=== PATIENT | female | born 1970 | race Two or more races ===

== ENCOUNTER 2022-03-11 06:05 | Outpatient (REF) | payer OTHER, SELFPAY ==
[2022-03-11 08:06] LABS: Alanine Aminotransferase 15 U/L (0-31); Albumin Level 4.4 g/dL (3.5-5.0); Alkaline Phosphatase 108 U/L (39-117); Anion Gap 16 (12-20); Aspartate Amino Transferase 17 U/L (5-31); Bilirubin Total 0.2 mg/dL (0.0-1.0); Blood Urea Nitrogen 13 mg/dL (9-16); Calcium 9.2 mg/dL (8.4-10.2); Carbon Dioxide 25 mmol/L (22-29); Chloride 106 mmol/L (96-108); Cholesterol 224 mg/dL; Estimated Glomerular Filt Rate > 60; Glucose Fasting 97 mg/dL (60-99); HDL Cholesterol 90 mg/dL; LDL Cholesterol Calculated 111 mg/dl; Potassium 4.7 mmol/L (3.3-5.1); Sodium 142 mmol/L (135-145); Total Protein 7.7 g/dL (6.5-8.0); Triglycerides 116 mg/dL
== END 2022-03-11 06:06 | disposition home or self-care (01) ==
LOC: HO.LAB 06:05
PROVIDERS: PCP Internal Medicine; Visit Provider Internal Medicine
DX: Z00.00 Encounter for general adult medical examination without abnormal findings (principal)
CPT/HCPCS: 36415; 80053; 80061

== ENCOUNTER 2022-03-16 15:36 | Outpatient (REF) | payer OTHER, SELFPAY ==
--- NOTE | ~2022-03-16 | MM_ITS ---
EXAMINATION: MM SCREENING DIGITAL BREAST TOMOSYNTHESIS, BILATERAL CLINICAL INFORMATION: Screening. Asymptomatic. The lifetime risk of breast cancer based on the Tyrer-Cuzick Model is 20.3%. Additional annual screening with breast MRI may be of benefit in women with a score of 20% or greater. COMPARISON: Mammography: None. TECHNIQUE: Digital breast tomosynthesis is performed in both the craniocaudal and mediolateral oblique views along with computer-aided detection (CAD). Synthesized 2D images are generated from the tomosynthesis. FINDINGS: The breasts are heterogeneously dense, which may obscure small masses (ACR BI-RADS breast composition Category c). About the upper outer aspect of the right breast approximately 4 cm from the nipple, there is a partially circumscribed approximately 2.0 x 2.2 x 2.3 cm in size mass with adjacent partially circumscribed density posterior to it. There is also multiplicity and bilaterality of calcifications with no one grouping being more suspicious than any other. No significant masses identified within the left breast. There is a question of some architectural distortion in the left breast superiorly but which is seen to represent superimposition of fibroglandular structures with tomosynthesis views. MM/MM tomosynthesis screening BI IMPRESSION: Right breast findings for which further evaluation is recommended with ultrasound. ASSESSMENT: BI-RADS 0: Incomplete - Need Additional Imaging Evaluation. RECOMMENDATION: Right breast ultrasound. Radiology department staff will contact the patient for additional imaging. This patient's information was entered into a reminder system with a target due date for their next mammogram.
== END 2022-03-16 15:37 | disposition home or self-care (01) ==
LOC: HO.MAMMO 15:36
PROVIDERS: PCP Internal Medicine; Visit Provider Internal Medicine
DX: Z12.31 Encounter for screening mammogram for malignant neoplasm of breast (principal)
CPT/HCPCS: 77063; 77067

== ENCOUNTER 2022-03-22 10:23 | Outpatient (REF) | payer OTHER, SELFPAY ==
--- NOTE | ~2022-03-22 | US_ITS ---
EXAMINATION: US DIAGNOSTIC ULTRASOUND BREAST, RIGHT CLINICAL INFORMATION: Recall from screening for oval mass upper outer right breast 2.3 cm, likely fibrocystic changes. COMPARISON: Mammography 03/16/2022. TECHNIQUE: Ultrasound right breast is targeted to the outer breast using grayscale imaging and color Doppler without and with harmonics. FINDINGS: There are fibrocystic changes as suspected outer right breast, largest cyst measures 2.5 x 1.5 cm and is simple, anechoic and circumscribed with no color flow. There are other smaller simple cysts present. No solid mass or complicated cyst. No duct ectasia. No architectural abnormality. Results are discussed with the patient at time of visit, using an greenhouse instructor. US/US breast RT limited IMPRESSION: -Simple cysts outer right breast, largest 2.5 cm corresponding to recent mammography. ASSESSMENT: BI-RADS 2: Benign RECOMMENDATION: Routine annual mammography screening. This patient's information was entered into a reminder system with a target due date for their next mammogram.
== END 2022-03-22 10:24 | disposition home or self-care (01) ==
LOC: HO.MAMMO 10:23
PROVIDERS: PCP Internal Medicine; Visit Provider Internal Medicine
DX: N63.10 Unspecified lump in the right breast, unspecified quadrant (principal)
CPT/HCPCS: 76642

== ENCOUNTER 2022-05-19 09:59 | Outpatient (REF) | payer OTHER, SELFPAY ==
[2022-05-19 11:51] LABS: Hematocrit 43.1 % (37.0-47.0); Hemoglobin 14.1 g/dl (12.0-16.0); Mean Corpuscular HGB Conc 32.7 g/dl (31.0-35.0); Mean Corpuscular Hemoglobin 28.6 pg (27.0-33.0); Mean Corpuscular Volume 87.4 fL (80.0-98.0); Mean Platelet Volume 10.5 fL (9.4-12.3); Platelet Count 285 X10*3/uL (160-400); Red Blood Count 4.93 X10*6/uL (4.20-5.50); Red Cell Distribution Width 13.4 % (11.0-16.0); White Blood Count 7.3 X10*3/uL (4.8-10.8)
[2022-05-19 12:32] LABS: Thyroid Stimulating Hormone 0.63 uIU/mL (0.32-4.0)
[2022-05-19 12:36] LABS: HBc Num1 0.07 S/CO (0.00-0.79); HIV AB/AG Nonreactive (Nonreactive); HIV Num 1 0.06 S/CO (0.00-0.99); Hepatitis B Core Antibody Nonreactive (Nonreactive); ~HepC Num1 0.09 S/CO (0.00-0.79); ~Hepatitis C Antibody Nonreactive (Nonreactive)
[2022-05-19 12:42] LABS: Syphilis Screen Nonreactive (Nonreactive)
[2022-05-19 16:59] LABS: CT PCR NOT DETECTED (Not Detect.); NG PCR NOT DETECTED (Not Detect.)
== END 2022-05-19 10:00 | disposition home or self-care (01) ==
LOC: HO.LAB 09:59
PROVIDERS: PCP Internal Medicine; Visit Provider Advanced Practice Midwife
DX: Z01.419 Encounter for gynecological examination (general) (routine) without abnormal findings (principal); Z11.51 Encounter for screening for human papillomavirus (HPV); Z11.4 Encounter for screening for human immunodeficiency virus [HIV]; N92.1 Excessive and frequent menstruation with irregular cycle; Z20.2 Contact with and (suspected) exposure to infections with a predominantly sexual mode of transmission
CPT/HCPCS: 84443; 85027; 86704; 86780; 86803; 87389; 87491; 87591; 87624; 88142

== ENCOUNTER 2022-05-19 11:21 | Outpatient (REF) | payer OTHER, SELFPAY ==
[2022-05-20 09:28] LABS: HPV mRNA E6/E7 rflx Not Detected (Not Detected)
== END 2022-05-19 11:22 | disposition home or self-care (01) ==
LOC: HO.LNP 11:21
PROVIDERS: Visit Provider Advanced Practice Midwife
DX: Z13.89 Encounter for screening for other disorder (principal)
CPT/HCPCS: 87624; 88142

== ENCOUNTER 2022-06-16 14:07 | Outpatient (REF) | payer OTHER, SELFPAY ==
--- NOTE | ~2022-06-16 | US_ITS ---
EXAMINATION: US PELVIS CLINICAL INFORMATION: Uterine hypertrophy; the last menstrual period is not specified. COMPARISON: None TECHNIQUE: Ultrasound of the pelvis is performed using both transabdominal and transvaginal transducers along with Doppler. Transvaginal imaging is performed due to inadequate visualization transabdominally. FINDINGS: Uterus: The uterus is anteverted and anteflexed. The uterus measures 10.1 x 8.5 x 7.2 cm. The double wall endometrial thickness is 1.5 mm. A Nabothian cyst is seen within the cervix. The uterus is smooth in contour and has normal myometrial echogenicity. FIBROIDS: There are 2 fibroids seen. 1. Location: Leftward fundus. Size: 4.3 x 3.3 x 3.6 cm. Fibroid characteristics: 2. Location: Posterior lower uterine body. Size: 1.7 x 1.8 x 1.8 cm. Fibroid characteristics: Adnexa: Both ovaries are visualized. There is normal color flow to the adnexa. There is no ovarian torsion. There is no pelvic ascites or fluid collection. Right ovary measures 3.9 x 3.3 x 4.0 cm (volume 27.0 mL). The right ovary contains a 3.6 x 3.0 x 3.1 cm hemorrhagic cyst, with characteristic internal reticulated contents. Left ovary measures 2.9 x 2.4 x 2.0 cm (volume 7.3 mL). The left ovary contains a 1.8 cm in maximal diameter benign, simple cyst. US/US pelvic and transvaginal IMPRESSION: 1. Uterine fibroids are noted, as detailed. 2. A Nabothian cyst is seen within the cervix. 3. A 3.6 cm hemorrhagic right ovarian cyst is seen, and there is a 1.8 cm maximal diameter benign, simple left ovarian cyst.
== END 2022-06-16 14:08 | disposition home or self-care (01) ==
LOC: HO.US 14:07
PROVIDERS: PCP Internal Medicine; Visit Provider Advanced Practice Midwife
DX: N85.2 Hypertrophy of uterus (principal); N95.2 Postmenopausal atrophic vaginitis
CPT/HCPCS: 76830; 76856

== ENCOUNTER → 2022-06-21 13:56 | Outpatient (BNVA) | payer OTHER, SELFPAY | PROVIDERS: PCP Internal Medicine; Visit Provider Advanced Practice Midwife | DX: D25.9 Leiomyoma of uterus, unspecified (principal); N83.209 Unspecified ovarian cyst, unspecified side; N94.6 Dysmenorrhea, unspecified; Z71.2 Person consulting for explanation of examination or test findings | CPT/HCPCS: 99212 ==

== ENCOUNTER 2023-03-21 15:23 | Outpatient (REF) | payer OTHER, SELFPAY ==
--- NOTE | ~2023-03-21 | MM_ITS ---
EXAMINATION: MM SCREENING DIGITAL BREAST TOMOSYNTHESIS, BILATERAL CLINICAL INFORMATION: Screening. Asymptomatic. COMPARISON: Mammography: This study is compared with prior exams dating back to 2019. TECHNIQUE: Digital breast tomosynthesis is performed in both the craniocaudal and mediolateral oblique views along with computer-aided detection (CAD). Synthesized 2D images are generated from the tomosynthesis. FINDINGS: The breasts are heterogeneously dense, which may obscure small masses (ACR BI-RADS breast composition Category c). In the upper outer quadrant of the right breast, there are grouped calcifications for which additional mammographic imaging magnification is advised. These calcifications occur in the same region as well-circumscribed benign masses. These masses were shown to represent benign cysts on prior sonography from February 2022. There are no significant masses or areas of architectural distortion in either breast. There are no significant calcifications in the left breast. There is few benign calcifications in the left breast. MM/MM tomosynthesis screening BI IMPRESSION: Calcifications of the upper outer quadrant of the right breast warrant additional mammographic imaging magnification. There are bilateral benign mammographic findings in each breast. ASSESSMENT: BI-RADS BI-RADS 0 - Incomplete: Needs additional Imaging. RECOMMENDATION: Additional views of the right breast. Radiology department staff will contact the patient for additional imaging. Additional Imaging required This examination should not preclude the clinical evaluation of a suspicious palpable abnormality. This patient's information was entered into a reminder system with a target due date for their next mammogram.
== END 2023-03-21 15:24 | disposition home or self-care (01) ==
LOC: HO.MAMMO 15:23
PROVIDERS: PCP Internal Medicine; Visit Provider Internal Medicine
DX: Z12.31 Encounter for screening mammogram for malignant neoplasm of breast (principal)
CPT/HCPCS: 77063; 77067

== ENCOUNTER → 2023-03-21 15:45 | Outpatient (BNV) | payer OTHER, SELFPAY | PROVIDERS: PCP Internal Medicine; Visit Provider Radiology Diagnostic Radiology | DX: Z12.31 Encounter for screening mammogram for malignant neoplasm of breast (principal) | CPT/HCPCS: 77063; 77067 ==

== ENCOUNTER 2023-03-24 12:36 | Outpatient (AMB) | payer OTHER, SELFPAY ==
[2023-03-24 12:42] VITALS: BP 110/70; PULSE 82; O2SAT 98; BMI 24.4
--- NOTE | 2023-03-24 12:42 | MHC.PC.OV ---
Vital Signs 03/24/23 12:42 Height 5 ft 4 in Weight 142 lb BMI 24.4 BP 110/70 Blood Pressure Location Lt brachial Position Sitting Pulse 82 Pulse Source Pulse Oximeter Pulse Oximetry (%) 98 Oxygen Delivery Method Room Air Intake Visit Reasons: Annual Exam Intake Note: Patient here for a physical exam Physical Security Specialist Required: No Accompanied by: Self / Same As Patient Allergies No Known Allergies Allergy (Verified 03/24/23 12:51) Medication List - Last Reconciled 03/24/23 by Roxanne Cordero MD gabapentin 300 mg PO TID 30 days indomethacin 50 mg PO BID 30 days Tobacco use date assessed: 03/24/23 Dental Screening Dental Screen Date: 03/24/23 Did you have a dental visit in the last 12 months?: No Did you have a dental problem in the last 6 months where you did not have access to dental care?: No Was dental information given to patient?: Patient has dentist HPI HPI Comments History of Present Illness Details This is a 52-year-old female that comes for her physical exam. Last mammogram was this week and results are still pending. Last Pap smear was 2021 and was normal. She has no family history of colon cancer and no complains. Will order Cologuard to screen for colon cancer. No chest pain or shortness of breath. 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 1. Little interest or pleasure in doing things: not at all 2. Feeling down, depressed, or hopeless: not at all 3. Trouble falling or staying asleep, or sleeping too much: not at all 4. Feeling tired or having little energy: not at all 5. Poor appetite or overeating: not at all 6. Feeling bad about yourself - or that you are a failure or have let yourself or your family down: not at all 7. Trouble concentrating on things, such as reading the newspaper or watching television: not at all 8. Moving or speaking so slowly that other people could have noticed. Or the opposite - being so fidgety or restless that you have been moving around a lot more than usual: not at all 9. Thoughts that you would be better off or of hurting yourself in some way: not at all Total score: 0 Depression Screening Interpretation: Negative Depression Screening Done: Yes 44631 - PHQ-9 Billing: Yes Source: Developed by Drs. Arnulfo Arthur, Nathalia Cottrell, Pedrito Hart and colleagues, with an educational kyle from [employer]. Thrive Questionnaire Date Thrive assessed: 03/24/23 I am a: Patient What is your living situation today?: I have a steady place to live Within the past 12 months, did the food you bought not last and you didn't have the money to get more?: Never true Within the past 12 months, did you worry whether your food would run out before you got money to buy more?: Never true Do you have trouble paying for medicines?: No Do you have trouble getting transportation to medical appointments?: No Do you have trouble paying your heating and electricity bill?: No Do you have trouble taking care of your child, family member or friend?: No Do you have trouble with day-to-day activities such as bathing, preparing meals, shopping, managing finances, etc.?: No Are you currently unemployed and looking for a job?: No Are you interested in more education?: No Please select the resources that you would like help with: None Currently or been in a relationship where the following occur: no concerns reported AUDIT C Alcohol Use Questionnaire (AUDIT-C) 1. How often do you have a drink containing alcohol?: 2-4 times a month 2. How many drinks containing alcohol do you have on a typical day when you are drinking?: 1 or 2 3. How often do you have six or more drinks on one occasion?: Never Total Score: 2 Score Reviewed/Action Taken: No JOSE ALEJANDRO-7 AMB Questionnaire JOSE ALEJANDRO-7 Date JOSE ALEJANDRO - 7 assessed: 03/24/23 Feeling nervous, anxious, or on edge: 0 = Not at all Not being able to stop or control worryin = Not at all Worrying too much about different things: 0 = Not at all Trouble relaxin = Not at all Being so restless that it is hard to sit still: 0 = Not at all Becoming easily annoyed or irritable: 0 = Not at all Feeling afraid as if something awful might happen: 0 = Not at all Total JOSE ALEJANDRO-7 score (0-4 normal; 5-9 mild; 10-14 moderate; 15-21 severe): 0 Source: Developed by Drs. Arnulfo Arthur, Nathalia Cottrell, Pedrito Hart and colleagues, with an educational kyle from [employer]. JOSE ALEJANDRO-7 Assessment Billing JOSE ALEJANDRO-7 Assessment Tool: JOSE ALEJANDRO-7 Assessment 20625 Review of Systems Const All systems reviewed & are unremarkable except as noted in HPI and below Eyes Reports no additional complaints, Denies change in vision and Denies other visual disturbances Card Denies chest pain at rest, Denies chest pain with activity, Denies edema, Denies irregular heart rhythm, Denies claudication, Denies dyspnea, Denies dyspnea on exertion, Denies orthopnea, Denies paroxysmal nocturnal dyspnea and Denies slow heart rate Resp Denies cough, Denies dyspnea and Denies dyspnea on exertion GI Denies abdominal pain, Denies change in bowel habits, Denies excessive flatus, Denies nausea and Denies vomiting Denies urinary incontinence, Denies urinary hesitancy and Denies urinary urgency Musc Denies abnormal gait, Denies atrophy, Denies deformity and Denies limited range of motion Skin/Breast Denies bleeding lesions, Denies changing lesions and Denies rash Neuro Denies abnormal gait Physical exam (Primary Care) Vital Signs: Last Vital Signs Pulse 82 03/24/23 12:42 BP 110/70 03/24/23 12:42 Pulse Ox 98 03/24/23 12:42 Oxygen Delivery Method Room Air 03/24/23 12:42 BMI result Body Mass Index 24.4 Tobacco/Smoking Status: Tobacco use Status Tobacco use date assessed 03/24/23 03/24/23 12:48 Patient Tobacco Use Status Never used Tobacco 03/24/23 12:55 e-Cigarette/Vaping Use Never Used 03/24/23 12:55 PHQ-9: PHQ-9 Score PHQ-9: Total score 0 03/24/23 12:56 Depression Screening Interpretation: Negative Thrive Assessment: Date of Thrive Assessment Date Thrive assessed 03/24/23 03/24/23 12:48 Currently or been in a relationship where the following occur: no concerns reported Const Orientation/consciousness: patient oriented x3 HENMT Head: Yes normal to inspection, Yes normocephalic and Yes atraumatic Ears: external ears normal Eyes General: appearance normal, both eyes and all related structures Eyelids: Yes eyelids normal Conjunctivae: conjunctivae normal Neck Neck: Yes normal visual inspection and Yes supple Resp Effort & Inspection: normal respiratory effort Auscultation: clear to auscultation bilaterally Cardio Jugular venous distension: no JVD Rate: regular rate Rhythm: regular rhythm Heart sounds: S1 normal heart sound present and S2 normal heart sound present GI Inspection: Yes normal to inspection Palpation (GI): Soft to palpation and nontender Auscultation: normal bowel sounds Skin General skin exam: no rashes or lesions noted Neuro General: patient oriented x3 and no focal motor deficits Extrem General: Yes full ROM Psych Appearance: grossly normal Office Procedures Flu Questionnaire Does the patient have a severe egg allergy?: No Does the patient have severe life threatening allergies?: No Does the patient have a fever or illness today?: No Has the patient ever had Guillain-Makanda Syndrome?: No Has the patient ever had any past reaction to a flu shot?: No Immunizations flu vacc [id number] 6mos up(PF) 60 mcg(15 mcgx4)/0.5 mL IM syringe Performing Provider: Roxanne Cordero MD Performing Location: [facility] Administered by: JOSEPH Calvin on 03/24/23 13:05 Dose Route Admin Location Dispensed Lot Number Expiration Date NDC Buffing Wheel Raker 0.5 mL IM Right Deltoid 0.5 mL [id number] 11/20/23 92996-898-48 [employer] VIS Given Date VIS Provided VIS Publication Date 03/24/23 Single Vaccine 20 Eligibility Eligibility Date Funding Source Not VFC Eligible 03/24/23 Private Assessment and Plan Assessment & Plan (1) Physical exam: Code(s): Z00.00 - Encounter for general adult medical examination without abnormal findings Plan: Repeat in a year Orders: Orders Influenza [id number] Immunization Today Z23 - Encounter for immunization Lipid Panel Today Z00.00 - Encounter for general adult medical examination without abnormal findings Comprehensive [place]. Panel Fast Today Z00.00 - Encounter for general adult medical examination without abnormal findings Referrals Cologuard Test Z12.11 - Encounter for screening for malignant neoplasm of colon, Z12.12 - Encounter for screening for malignant neoplasm of rectum Coding Level of Care Code Est Pt Prev Care 40-64y(71271) Diagnoses Physical exam Z00.00 Additional Codes JOSE ALEJANDRO-7 Assessment Billing - JOSE ALEJANDRO-7 Assessment Tool: JOSE ALEJANDRO-7 Assessment 04406 ([id number]) Time Spent (min) 31
== END 2023-03-24 13:08 | disposition home or self-care (01) ==
PROVIDERS: Visit Provider Internal Medicine
DX: Z00.00 Encounter for general adult medical examination without abnormal findings (principal); Z23 Encounter for immunization
CPT/HCPCS: 90471; 90686; 99396

== ENCOUNTER 2023-05-26 09:51 | Outpatient (AMB) | payer OTHER, SELFPAY ==
--- NOTE | 2023-05-26 09:52 | MHC.OFFVIS ---
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 She is doing well with no concerns. Reports regular monthly menses x3 days. Denies hot flashes. Attempting to eat a healthy diet with calcium and vitamin D and stays active with exercise. Currently not sexually active. Denies any vaginal dryness or irritation. STI testing offered; she declines. Last pap smear; 2021. Last mammogram; incomplete, has follow up 05/27/23. Colonoscopy is UTD. Denies any family history of ovarian or colon cancer. FH mother w/breast cancer. 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 Current occupational exposures/hazards: No Sexual orientation: Straight/Heterosexual Gender identity: Female Cognitive needs: No Hearing needs: No Vision needs: No Female Reproductive History Menstrual Age of Menarche: 13 Total pregnancies: 0 Date of last pap smear: 05/19/22 (neg pap and hpv) Date of Mammogram: 03/21/23 (Birad 0) Review of Systems Const All systems reviewed & are unremarkable except as noted in HPI and below Reports as per HPI Eyes Reports no additional complaints ENT Reports no additional complaints Card Reports no additional complaints Resp Reports no additional complaints GI Reports as per HPI and Reports no additional complaints Reports as per HPI Musc Reports no additional complaints Skin/Breast Reports as per HPI Neuro Reports no additional complaints Psych Reports no additional complaints Endo Reports no additional complaints Julio C/Lymph Reports no additional complaints Aller/Immun Reports no additional complaints Physical Exam Vital Signs: Last Vital Signs BP 120/80 05/26/23 09:53 BMI result Body Mass Index 24.4 Const General: cooperative, healthy appearing, no acute distress, well developed and alert Orientation/consciousness: patient oriented x3 HEENT Head: Yes normal to inspection Eyes General: appearance normal, both eyes and all related structures Neck Neck: Yes normal visual inspection Thyroid: Thyroid normal Chest Chest palpation & inspection: normal inspection of the chest and other (no puckering, dimpling, peau de orange, retraction, discharge, masses) Breast/axilla inspection: normal inspection of the breasts Breast/axilla palpation: normal palpation of the breasts Resp Effort & Inspection: normal respiratory effort GI Inspection: Yes normal to inspection Palpation (GI): Soft to palpation Rectal Exam - Female: deferred General: Yes bladder normal to palpation External Female Exam: normal external appearance and normal appearance of the urethra Speculum Exam - Vagina: normal appearance of the vagina, normal palpation and normal vaginal discharge Speculum Exam - Cervix: normal appearance of the cervix and normal palpation Bimanual exam- vagina & uterus: normal bimanual exam, normal palpation, bladder normal to palpation, normal palpation, non-tender and enlarged Bimanual Exam- Adnexa, other: no masses Skin General skin exam: no rashes or lesions noted Rashes: no rashes Neuro General: patient oriented x3 Cognition (Neuro): normal cognition Extrem General: Yes normal to inspection Psych Attitude: cooperative Thought process: Normal thought process present Assessment & Plan Assessment & Plan (1) Encounter for well woman exam with routine gynecological exam: Code(s): Z01.419 - Encounter for gynecological examination (general) (routine) without abnormal findings (2) Uterine fibroid: Code(s): D25.9 - Leiomyoma of uterus, unspecified Qualifiers: Uterine leiomyoma location: unspecified location Qualified Code(s): D25.9 - Leiomyoma of uterus, unspecified (3) Enlarged uterus: Code(s): N85.2 - Hypertrophy of uterus Plan: Counseled re: Leiomyoma: common pelvic neoplasm. Differential diagnosis-may include leiomyosarcoma which is a rare uterine sarcoma 3-7/100,000, difficult to distinguish from fibroids on ultrasound from uterine sarcoma's. Unlikely any single test will have a highly positive predictive value. Hysterectomy is not recommended for sole purpose of excluding malignant neoplasm. Report any PMB/AUB. Pelvic pressure, bloating, or pain. Expectant management offered. Expectant management follow up yearly for stability. Referral to MD if indicated for level of care. Plan Discussed: Current recommendations for pap smears per ASCCP guidelines. Breast awareness, periodic self breast exams and yearly mammogram. Maintain a healthy lifestyle, well balanced diet including Calcium 1,200 mg and Vitamin D 600 IU daily, and routine exercise. Use of condoms for STI if indicated. Contact the office with any AUB bleeding. Monitor menstrual cycles, report any unscheduled bleeding, bleeding episodes <21 days apart or heavy/prolonged menstrual bleeding. Call the office for a follow up for any concerns. All of her questions and concerns were addressed to the best of my ability. 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 This note is constructed using voice recognition software. While every effort has been made to ensure accuracy, device sales consultant errors may have been included. Orders: Orders US pelvic and transvaginal Today D25.9 - Leiomyoma of uterus, unspecified Coding Level of Care Code Est Pt Prev Care 40-64y(69976) Diagnoses Encounter for well woman exam with routine gynecological exam Z01.419 Uterine leiomyoma, unspecified location D25.9 Uterine leiomyoma location: unspecified location Enlarged uterus N85.2
[2023-05-26 09:53] VITALS: BP 120/80; BMI 24.4
== END 2023-05-26 10:21 | disposition home or self-care (01) ==
LOC: HO.HWS 09:51
PROVIDERS: PCP Internal Medicine; Visit Provider Advanced Practice Midwife
DX: Z01.419 Encounter for gynecological examination (general) (routine) without abnormal findings (principal); D25.9 Leiomyoma of uterus, unspecified; N85.2 Hypertrophy of uterus
CPT/HCPCS: 99396

== ENCOUNTER → 2023-05-26 09:51 | Outpatient (BNVA) | payer OTHER, SELFPAY | PROVIDERS: PCP Internal Medicine; Visit Provider Advanced Practice Midwife | DX: Z01.419 Encounter for gynecological examination (general) (routine) without abnormal findings (principal); D25.9 Leiomyoma of uterus, unspecified; N85.2 Hypertrophy of uterus | CPT/HCPCS: 99396 ==

== ENCOUNTER 2023-05-27 10:39 | Emergency (ER) | payer OTHER, SELFPAY ==
[2023-05-27 10:49] VITALS: BP 143/85; PULSE 83; RESP 16; TEMP 36.3; O2SAT 99; BMI 22.9
--- NOTE | 2023-05-27 13:05 | ED.BACK ---
HPI - Back Pain/Injury General Chief Complaint: Back Pain/Injury Stated Complaint: R side hip pain Time Seen by Provider: 05/27/23 11:59 Source: patient Mode of arrival: ambulatory Limitations: no limitations History of Present Illness HPI Narrative: patient is a 52-year-old female who presents emergency department for evaluation of right lower back pain radiating into the buttock and down the upper leg. Onset was approximately 2 days ago. She reports a history of similar pain in the past about 4 5 years ago which did improve with muscle relaxers. Denies recent precipitating injury, fevers, chills, burning with micturition, urinary frequency/urgency/hesitancy, bladder or bowel dysfunction, numbness or tingling of the perineum or bilateral legs. Denies any recent surgical procedures, any known immune compromising conditions, personal history of cancer, or IV drug usage. MD elicited complaint: back pain Related Data Previous Rx's Medication Instructions Recorded gabapentin 300 mg capsule 300 mg PO TID 30 days #90 caps 04/03/23 indomethacin 50 mg capsule 50 mg PO BID 30 days #60 caps 04/03/23 cyclobenzaprine 10 mg tablet 10 mg PO BEDTIME PRN muscle spasm 05/27/23 #10 tabs Allergies Allergy/AdvReac Type Severity Reaction Status Date / Time No Known Allergies Allergy Verified 05/26/23 09:53 Review of Systems Review of Systems: Yes all other systems are reviewed and are negative PMFSH Past Medical History Attestation statement: The following information was validated with the patient. Source: old records reviewed Onset Date is defined in the Problem List Problems that require an onset date and time if occurred within 24 hrs of arrival to the ED Aortic Dissection and Rupture; Neurologic impairment; Cardiopulmonary Arrest; Endotracheal Intubation; Insertion or Replacement of Mechanical Circulatory Assist Device Medical History Uterine fibroid Endometriosis Surgical History History of fracture of clavicle History of ovarian cystectomy Family History Family History Father Hypertension Mother Breast cancer, Onset Age: 62 Social History Social History Household Members: None Housing: House Alcohol intake: current Alcohol intake frequency: a few times a month Alcohol type: beer, wine and hard liquor Patient Tobacco Use Status: Never used Tobacco e-Cigarette/Vaping Use: Never Used Second Hand Smoke Exposure: No Advance Directives: No service: No Current occupational status: employed 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 No acute distress.?Normal affect. Eyes: Pupils equal, round and reactive to light.? ENT: Pharynx normal.?? Neck: Normal inspection.? Neck supple.?? CVS: Heart sounds normal. Normal heart rate and rhythm.? Pulses normal; bilateral radial pulses 2+, bilateral posterior tibial/dorsalis pedis pulses 2+.? Respiratory: No respiratory distress.? Lung sounds clear to auscultation bilaterally?? Abdomen: Soft and non-tender. Normoactive bowel sounds. No pulsatile mass.?? Skin: Skin warm and dry.? Normal skin color.? Normal skin turgor.?? Extremities: No lower extremity edema.? No calf ttp? Back: + mild Right paraspinal muscular tenderness from lumbar region to coccyx. No CVA tenderness. No midline spinal tenderness, step-off's, or deformity. Full ROM intact in bilateral lower extremities. Straight leg test positive on right; Straight leg test negative on left. No rashes, lesions, areas of induration or fluctuance, or signs of infection noted., Neuro: Moves all extremities spontaneously. 5/5 strength in hip extension/flexion, abduction, adduction. Sensation to light touch intact bilaterally. Patellar and Achilles reflex 2+ bilaterally. No ataxia, gait normal and steady.. No focal neuro deficits. Medical Decision Making Medical Decision Making MDM Narrative: patient is a 51 old female presents emergency evaluation lower back as physical examination and history are most consistent with a lumbar radiculopathy, she is without any obvious precipitating injury so I have a low suspicion for disc herniation, although cannot completely exclude. On neurological exam there are no deficits. Not consistent with spinal fracture, spinal infection, epidural abscess, AAA, epidural abscess, or dissection. No high risk past medical history including incontinence, fever, immunosuppression, recent surgery or lumbar puncture, coagulopathy, significant trauma, recent unintentional weight loss, pulsatile mass, history of cancer, history of TB, history of IV drug use that would warrant MRI or CT. Not consistent with ectopic , pyelonephritis, urinary tract infection, renal calculi, pelvic infection, appendicitis, diverticulitis. On exam no concern for cauda equina syndrome. No imaging is currently indicated at this time. Plan for discharge home with prescription for Flexeril, and follow-up with primary care provider, and patient agreed with plan. Differential Diagnosis Differential Diagnoses: The differential diagnosis associated with the presentation includes ( see narrative above) Admission/Observation Consideration of admission/observation: Escalation of care including admission/observation considered ( see narrative above) External Record Review External record reviewed: Outpatient record Tests considered The following testing was considered but not selected: see narrative above Prescription Management I considered prescription management with: Pain Medication Discharge Plan Discharge Clinical Impression: Lumbar radiculopathy Patient Disposition: Home, Self-Care Instructions: Lumbar Radiculopathy (ED), Lower Back Exercises (ED) Prescriptions: New cyclobenzaprine 10 mg tablet 10 mg PO BEDTIME PRN (Reason: muscle spasm) Qty: 10 0RF No Action indomethacin 50 mg capsule 50 mg PO BID 30 Days Qty: 60 6RF Rx Instructions: administer with food or milk gabapentin 300 mg capsule 300 mg PO TID 30 Days Qty: 90 2RF Referrals: Roxanne Phelan MD [Primary Care Provider] - Stand Alone Forms: Work/School Release
== END 2023-05-27 14:00 | disposition home or self-care (01) ==
PROVIDERS: Emergency Provider Student in an Organized Health Care Education/Training Program; PCP Internal Medicine
DX: M54.16 Radiculopathy, lumbar region (principal)
CPT/HCPCS: 99282

== ENCOUNTER 2023-05-27 15:12 | Outpatient (REF) | payer SELFPAY | END 2023-05-27 15:13 | disposition home or self-care (01) | LOC: HO.MAMMO 15:12 | PROVIDERS: PCP Internal Medicine; Visit Provider Internal Medicine | DX: R92.1 Mammographic calcification found on diagnostic imaging of breast (principal) | CPT/HCPCS: 77065 ==

== ENCOUNTER → 2023-05-27 15:30 | Outpatient (BNV) | payer OTHER, SELFPAY | PROVIDERS: PCP Internal Medicine; Visit Provider Radiology Diagnostic Radiology | DX: D24.1 Benign neoplasm of right breast (principal); R92.1 Mammographic calcification found on diagnostic imaging of breast | CPT/HCPCS: 77065 ==

== ENCOUNTER 2023-06-14 14:25 | Outpatient (REF) | payer SELFPAY ==
--- NOTE | ~2023-06-14 | US_ITS ---
EXAMINATION: US PELVIS COMPLETE CLINICAL INFORMATION: Follow-up uterine fibroids; the last menstrual period was one week prior. COMPARISON: Pelvic ultrasound dated 06/16/2022. TECHNIQUE: Transabdominal and transvaginal imaging were performed. FINDINGS: The uterus is of normal size and echogenicity measuring 10.5 x 5.5 x 8.4 cm. A regular homogeneous endometrium is identified measuring 1.1 cm. Nabothian cysts are seen within the cervix. There is trace endocervical free fluid FIBROIDS: There are 2 fibroids seen. 1. Location: Left isthmus, myometrial. Size: 5.7 x 5.0 x 5.3 cm. Prior: 4.3 x 3.3 x 3.6 cm. Fibroid characteristics: Heterogeneously hyperechoic. 2. Location: Posterior rightward lower body, myometrial. Size: 2.1 x 2.1 x 2.1 cm. Prior: 1.7 x 1.8 x 1.8 cm. Fibroid characteristics: Heterogeneously hypoechoic. Both ovaries are of normal size and echogenicity. The right ovary measures 2.0 x 1.5 x 1.9 cm for a volume of 3.0 mL. The right ovary contains a 1.3 x 1.0 x 1.0 cm mildly complex cyst with fine septation. This is a benign finding, for which no imaging follow-up is recommended. The left ovary measures 3.8 x 1.6 x 2.6 cm for a volume of 8.3 mL. The left ovary contains adjacent 1.3 x 1.0 x 1.0 cm and 1.5 x 1.3 x 1.3 cm hemorrhagic cysts, with characteristic internal reticulated contents. There is a further benign, simple 1.5 cm dominant follicle, for which no imaging follow-up is recommended. There is no pelvic free fluid. No adnexal mass is seen. US/US pelvic and transvaginal IMPRESSION: 1. Uterine fibroids are redemonstrated. 2. There is trace, nonspecific endocervical free fluid. 3. Nabothian cysts are seen within the cervix. 4. There are benign appearing bilateral ovarian cysts, as detailed. These require no imaging follow-up.
== END 2023-06-14 14:26 | disposition home or self-care (01) ==
LOC: HO.US 14:25
PROVIDERS: PCP Internal Medicine; Visit Provider Advanced Practice Midwife
DX: D25.9 Leiomyoma of uterus, unspecified (principal)
CPT/HCPCS: 76830; 76856

== ENCOUNTER 2024-06-07 13:00 | Outpatient (REF) | payer BC, SELFPAY ==
--- NOTE | ~2024-06-07 | MM_ITS ---
EXAMINATION: MM DIAGNOSTIC DIGITAL BREAST TOMOSYNTHESIS, BILATERAL CLINICAL INFORMATION: Follow-up grouped calcifications in the upper outer right breast. COMPARISON: Mammography: Comparison is made with relevant prior exams. TECHNIQUE: Digital breast mammography with tomosynthesis is performed in both the craniocaudal and mediolateral oblique views along with computer-aided detection (CAD). FINDINGS: The breasts are heterogeneously dense, which may obscure small masses (ACR BI-RADS breast composition Category c). Grouped calcifications in the upper outer right breast are not significantly changed from prior magnification views dating back for one year some of which layer on MLO magnification views and could be milk of calcium. Circumscribed oval masses bilaterally which wax and wane, previously demonstrated to be simple cyst on prior ultrasound. No suspicious masses or other abnormal findings. Results are provided to the patient at time of visit by the technologist. MM/MM tomosynthesis diagnostic BI IMPRESSION: Right: Grouped calcifications in the upper outer quadrant not significantly changed on prior magnification views dating back for one year. Probably benign. Recommend follow-up in one year to demonstrate 2 years of stability. Left: Benign. ASSESSMENT: BI-RADS BI-RADS 3 - Probably benign finding(s) - 12 month follow-up suggested RECOMMENDATION: 12 month diagnostic follow up This patient's information was entered into a reminder system with a target due date for their next mammogram. Electronically signed by: Sintia Osborn DO 06/07/2024 01:34 PM VICKY
== END 2024-06-07 13:01 | disposition home or self-care (01) ==
LOC: HO.MAMMO 13:00
PROVIDERS: Visit Provider Internal Medicine
DX: R92.1 Mammographic calcification found on diagnostic imaging of breast (principal)
CPT/HCPCS: 77062; 77066

== ENCOUNTER → 2024-06-07 13:00 | Outpatient (BNV) | payer BC, SELFPAY | PROVIDERS: Visit Provider Internal Medicine | DX: R92.1 Mammographic calcification found on diagnostic imaging of breast (principal); N60.01 Solitary cyst of right breast; N60.02 Solitary cyst of left breast | CPT/HCPCS: 77062; 77066 ==

== ENCOUNTER 2024-08-06 11:03 | Outpatient (AMB) | payer BC, SELFPAY ==
--- NOTE | 2024-08-06 11:28 | MHC.OFFVIS ---
Vital Signs 08/06/24 11:33 Height 5 ft 6 in Weight 142 lb BMI 22.9 BP 124/72 Intake Visit Reasons: rt breast lump Oxygen Equipment Aide Required: Yes Oxygen Equipment Aide Language: Seafood Team Member Services: Oxygen Equipment Aide Present (in person) Oxygen Equipment Aide Name: JOSEPH Desir Information Interpreted: non-clinical & clinical Grease Maker Head: Grease Maker Head Present (JOSEPH Desir) Accompanied by: Self / Same As Patient Allergies No Known Allergies Allergy (Verified 05/26/23 09:53) Is last menstrual period known: No Post menopausal: Yes Patient : No HPI HPI rt breast lump: Details: Patient seen for a complaint of a breast lump in her right breast she felt it much more uncomfortable this past weekend. She is nulliparous and has not breastfed. She had an abnormal mammogram last year and had a follow-up diagnostic mammogram last year and a follow-up diagnostic mammogram this past May. Please see mammograms. Patient said she noticed it this weekend and it is a little uncomfortable her last period was 2 weeks ago. 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 No axillary mass. Left breast no mass palpable very dense firm breast tissue Right breast also dense firm but there is a palpable globular smooth mass behind right nipple approximately 3-4 cm round. Results Reviewed Results Reviewed: atient: Pretty Bob MR#: [id number] : 1970 Acct:[id number] Age/Sex: 53 / F ADM Date: 06/07/24 Loc: HO.MAMMO Attending Dr: Roxanne Cordero MD Ordering Physician: Roxanne Phelan MD Results: 3.12MProbably Benign Finding - 12 month F/U Suggested Date of Service: 06/07/24 Follow Up: 12 month diagnostic follow up Procedure(s): MM tomosynthesis diagnostic BI Accession Number(s): [id number] cc: Roxanne Phelan MD~ EXAMINATION: MM DIAGNOSTIC DIGITAL BREAST TOMOSYNTHESIS, BILATERAL CLINICAL INFORMATION: Follow-up grouped calcifications in the upper outer right breast. COMPARISON: Mammography: Comparison is made with relevant prior exams. TECHNIQUE: Digital breast mammography with tomosynthesis is performed in both the craniocaudal and mediolateral oblique views along with computer-aided detection (CAD). FINDINGS: The breasts are heterogeneously dense, which may obscure small masses (ACR BI-RADS breast composition Category c). Grouped calcifications in the upper outer right breast are not significantly changed from prior magnification views dating back for one year some of which layer on MLO magnification views and could be milk of calcium. Circumscribed oval masses bilaterally which wax and wane, previously demonstrated to be simple cyst on prior ultrasound. No suspicious masses or other abnormal findings. Results are provided to the patient at time of visit by the technologist. MM/MM tomosynthesis diagnostic BI IMPRESSION: Right: Grouped calcifications in the upper outer quadrant not significantly changed on prior magnification views dating back for one year. Probably benign. Recommend follow-up in one year to demonstrate 2 years of stability. Left: Benign. ASSESSMENT: BI-RADS BI-RADS 3 - Probably benign finding(s) - 12 month follow-up suggested RECOMMENDATION: 12 month diagnostic follow up This patient's information was entered into a reminder system with a target due date for their next mammogram. Electronically signed by: Sintia Osborn DO 06/07/2024 01:34 PM EST RP Dictated By: Sintia Osborn DO Signed By: <Electronically signed by Sintia Osborn DO in OV> 06/07/24 1334 DD/ 1305 TD/TT: 06/07/24 1325 Eviction Specialist: Assessment & Plan Assessment & Plan (1) Palpable mass of breast: Code(s): N63.0 - Unspecified lump in unspecified breast Category: Medical Plan Patient has already had a diagnostic mammogram of both breasts as follow-up to abnormal findings in the right breast last year. Patient says her last breast ultrasound was last year I am ordering a breast ultrasound for the right breast and I am ordering a consultation with Dr. Porter to review findings and consider best evaluation recommendations. Patient 's annual exam has been rescheduled to November she tells me. breast u/s within 1-2 weeks please referral to dr Hernandez Orders: Orders US breast RT complete Today N63.0 - Unspecified lump in unspecified breast Referrals Breast Surgery Referral N63.0 - Unspecified lump in unspecified breast Coding Level of Care Code Est Pt Level 3 (54230) Diagnoses Palpable mass of breast N63.0
[2024-08-06 11:33] VITALS: BP 124/72; BMI 22.9
--- OUTSIDE RECORDS SUMMARY | 2024-08-06 12:50 | XMS_ITS | Clinical Summary ---
[facility] Organization [facility] it Address [address] [place] [address] Care Team Providers Care Setter Off Name Role Phone Unavailable Primary Care Provider Unavailabl e Social History Tobacco Use Types Packs/Day Years Used Date Smoking Tobacco: Never Assessed Comments Unknown Sex and Gender Information Value Date Recorded Sex Assigned at Not on file Legal Sex Female 1:56 PM EDT Gender Identity Not on file Sexual Orientation Not on file Plan of Treatment Health Maintenance Due Date Last Done Comments DTaP,Tdap,and Td Vaccines (1 - Tdap) 11/06/1990 Hepatitis B Vaccines (1 of 3 - 19+ 3-dose series) 11/06/1990 Cervical Cancer Screening: P ap Smear 11/06/1992 Breast Cancer Screening 07/26/2021 07/27/2019 Pneumococcal Vaccine: 50+ Ye ars (1 of 1 - PCV) 11/06/2021 Zoster Vaccines (1 of 2) 11/06/2021 Colorectal Cancer Screening: Colonoscopy 11/29/2021 Depression Screening 11/29/2021 HIV Screening 11/29/2021 Hepatitis C Screening 11/29/2021 Social Influencers of Health Screening 11/29/2021 COVID-19 Vaccine (2023-2 5 season) 2024 Influenza Vaccine (#1) 2024 HIB Vaccines Aged Out No longer eligi ble based on patient's age to complete this topic HPV Vaccines Aged Out No longer eligi ble based on patient's age to complete this topic Hepatitis A Vaccines Aged Out No long er eligible based on patient's age to complete this topic IPV Vaccines Aged Out No longer eligi ble based on patient's age to complete this topic MMR Vaccines Aged Out No longer eligi ble based on patient's age to complete this topic Meningococcal ACWY Vaccine Aged Out N o longer eligible based on patient's age to complete this topic Meningococcal B Vacine Aged Out No lo nger eligible based on patient's age to complete this topic Pneumococcal Vaccine: Pediat rics (0 to 5 Years) and At-Risk Patients (6 to 64 Years) Aged Out No longer eligi ble based on patient's age to complete this topic RSV Immunization Patients Un lissa 20 months Aged Out No longer eligible b ased on patient's age to complete this topic Varicella Vaccines Aged Out No longer eligible based on patient's age to complete this topic Procedures Procedure Name Priority Date/Time Associated Diagnosis Comments MAMMO SCREENING DIGITAL BILAT Routine 07/27/2019 9:59 AM EST Encounter for screening mammogram for malignant neoplasm of breast from Last 3 Months or Most Recently Relevant to Health Maintenance Results * MAMMO SCREENING DIGITAL BILAT (07/27/2019 9:59 AM EST) Anatomical Region Laterality Modality Ultrasound 07/07/2019 12:2 1 PM EST Narrative 07/27/2019 9:59 AM EST [place] [address] Patient: ? ROJAS,LIXOBIA ? MR#: [id number] : ?1970 ? Room/Bed: Ordering Physician: SEEMA DIAL ?() Associated Orders: Mammo Screening Digital Bilat Service Date: 07/07/19 Final #[id number] - MAMMO SCREENING DIGITAL BILAT BILATERAL DIGITAL SCREENING MAMMOGRAM WITH CAD: 07/07/2019 CLINICAL: Z12.31. Current study was also evaluated with a Computer Aided Detection (CAD) system. No prior exams were available for comparison. The tissue of both breasts is heterogeneously dense. This may lower the sensitivity of mammography. In this patient at high risk for breast cancer, further evaluation with MRI is recommended. There are benign calcifications in both breasts. There is an irregular asymmetry in the right breast anterior depth central to the nipple seen on the craniocaudal view only. There also is an irregular asymmetry in the right breast anterior depth lateral region seen on the craniocaudal view only. Additionally, there is an irregular asymmetry in the right breast at 11 o'clock middle depth. In addition, there is an irregular asymmetry in the right breast at 4 o'clock posterior depth. There is an irregular asymmetry in the left breast anterior depth lateral region seen on the craniocaudal view only. There also is an irregular asymmetry in the left breast posterior depth lateral region seen on the craniocaudal view only. No other significant masses or calcifications are seen in either breast. IMPRESSION: INCOMPLETE In this patient with dense breast tissue and family history and abnormal mammogram, bilateral MRI is recommended. The irregular asymmetry in the right breast anterior depth central to the nipple seen on the craniocaudal view only is indeterminate (BiRad 0). ??An MRI is recommended. The irregular asymmetry in the right breast anterior depth lateral region seen on the craniocaudal view only is indeterminate (BiRad 0). An MRI is recommended. The irregular asymmetry in the right breast at 11 o'clock middle depth is indeterminate (BiRad 0). ??An MRI is recommended. The irregular asymmetry in the right breast at 4 o'clock posterior depth is indeterminate (BiRad 0). ??An MRI is recommended. The irregular asymmetry in the left breast anterior depth lateral region seen on the craniocaudal view only is indeterminate (BiRad 0). An MRI is recommended. The irregular asymmetry in the left breast posterior depth lateral region seen on the craniocaudal view only is indeterminate (BiRad 0). An MRI is recommended. BASED ON THE NCI/NSABP BREAST CANCER RISK ASSESSMENT TOOL, THIS PATIENT'S CALCULATED 5-YEAR RISK FOR DEVELOPING BREAST CANCER IS 1.7% AND LIFETIME RISK IS 17.5%. [facility] CALCULATIONS REPORT THIS PATIENT'S 10-YEAR RISK FOR DEVELOPING BREAST CANCER AT 5.7% AND LIFETIME RISK AT 26.2%. Patient information entered into a reminder system with a target due date for the next follow-up exam(s). A. ??A negative x-ray report should not delay biopsy if a dominant or clinically suspicious mass is present. B. ??A small percentage (probably less than 10%) of cancers will not be identified by x-ray, and there will be a similar small percentage of false-positive reports. C. ??Adenosis and dense breasts may obscure an underlying neoplasm. Aurelia campos/marco:07/27/2019 09:59:49 letter sent: Additional Imaging Needed BI-RADS: 0 Incomplete: Needs additional imaging evaluation and/or prior mammograms for comparison Dictating Physician: AURELIA ROMERO MD Dictate Date/Time: ?? 07/07/19 1237 Esigning Physician: AURELIA ROMERO MD Esign Date/Time: ? 07/27/19 0959 cc: SEEMA DIAL ?() Procedure Note Aurelia Romero MD - 03/20/2022 [place] [address] Patient: PRETTY ROJAS MR#:[id number] : 1970Acct#:[id number] Room/Bed: Ordering Physician: SEEMA DIAL () Associated Orders: Mammo Screening Digital Bilat Service Date: 07/07/19 Final #[id number] - MAMMO SCREENING DIGITAL BILAT BILATERAL DIGITAL SCREENING MAMMOGRAM WITH CAD: 07/07/2019 CLINICAL: Z12.31. Current study was also evaluated with a Computer Aided Detection (CAD) system. No prior exams were available for comparison. The tissue of both breasts is heterogeneously dense. This may lower the sensitivity of mammography. In this patient at high risk for breast cancer, further evaluation with MRI is recommended. There are benign calcifications in both breasts. There is an irregular asymmetry in the right breast anterior depth central to the nipple seen on the craniocaudal view only. There also is an irregular asymmetry in the right breast anterior depth lateral region seen on the craniocaudal view only. Additionally, there is an irregular asymmetry in the right breast at 11 o'clock middle depth. In addition, there is an irregular asymmetry in the right breast at 4 o'clock posterior depth. There is an irregular asymmetry in the left breast anterior depth lateral region seen on the craniocaudal view only. There also is an irregular asymmetry in the left breast posterior depth lateral region seen on the craniocaudal view only. No other significant masses or calcifications are seen in either breast. IMPRESSION: INCOMPLETE In this patient with dense breast tissue and family history and abnormal mammogram, bilateral MRI is recommended. The irregular asymmetry in the right breast anterior depth central to the nipple seen on the craniocaudal view only is indeterminate (BiRad 0). An MRI is recommended. The irregular asymmetry in the right breast anterior depth lateral region seen on the craniocaudal view only is indeterminate (BiRad 0). An MRI is recommended. The irregular asymmetry in the right breast at 11 o'clock middle depth is indeterminate (BiRad 0). An MRI is recommended. The irregular asymmetry in the right breast at 4 o'clock posterior depth is indeterminate (BiRad 0). An MRI is recommended. The irregular asymmetry in the left breast anterior depth lateral region seen on the craniocaudal view only is indeterminate (BiRad 0). An MRI is recommended. The irregular asymmetry in the left breast posterior depth lateral region seen on the craniocaudal view only is indeterminate (BiRad 0). An MRI is recommended. BASED ON THE NCI/NSABP BREAST CANCER RISK ASSESSMENT TOOL, THIS PATIENT'S CALCULATED 5-YEAR RISK FOR DEVELOPING BREAST CANCER IS 1.7% AND LIFETIME RISK IS 17.5%. [facility] CAL[facility] THIS PATIENT'S 10-YEAR RISK FOR DEVELOPING BREAST CANCER AT 5.7% AND LIFETIME RISK AT 26.2%. Patient information entered into a reminder system with a target due date for the next follow-up exam(s). A. A negative x-ray report should not delay biopsy if a dominant or clinically suspicious mass is present. B. A small percentage (probably less than 10%) of cancers will not be identified by x-ray, and there will be a similar small percentage of false-positive reports. C. Adenosis and dense breasts may obscure an underlying neoplasm. Aurelia campos/marco:07/27/2019 09:59:49 letter sent: Additional Imaging Needed BI-RADS: 0 Incomplete: Needs additional imaging evaluation and/or prior mammograms for comparison Dictating Physician: AURELIA ROMERO MD Dictate Date/Time: 07/07/19 1237 Esigning Physician: AURELIA ROMERO MD Esign Date/Time: 07/27/19 0959 cc: SEEMA DIAL () us Seema Dial FINISHER WALLBOARD AND PLASTERBOARD G US PROCEDURES Edited Result - Final from Last 3 Months or Most Recently Relevant to Health Maintenance
== END 2024-08-06 12:06 | disposition home or self-care (01) ==
LOC: HO.HWS 11:03
PROVIDERS: PCP Internal Medicine; Visit Provider Advanced Practice Midwife
DX: N63.0 Unspecified lump in unspecified breast (principal)
CPT/HCPCS: 99213

== ENCOUNTER → 2024-08-06 11:03 | Outpatient (BNVA) | payer BC, SELFPAY | PROVIDERS: PCP Internal Medicine; Visit Provider Advanced Practice Midwife ==

== ENCOUNTER 2024-08-24 08:15 | Outpatient (REF) | payer BC, SELFPAY ==
--- NOTE | ~2024-08-24 | US_ITS ---
EXAMINATION: US DIAGNOSTIC ULTRASOUND BREAST, RIGHT CLINICAL INFORMATION: Right breast lump felt by patient's physician and right breast pain at 9:00 lateral to the nipple.. COMPARISON: Comparison is made with relevant prior imaging. TECHNIQUE: Ultrasound of the breast is performed with real-time galan scale imaging and color Doppler. FINDINGS: Targeted color Doppler ultrasound scanning in the area of the palpable lump and pain demonstrates a simple cyst at 12:00 retroareolar region measuring 26 x 17 x 12 mm. There is a simple cyst at 9:00 6 cm from the nipple measuring approximately 18 x 25 mm. These areas correlate with the patient's palpable lump and pain. Results are discussed with the patient at time of visit. US/US breast RT limited mamm only IMPRESSION: Multiple simple cysts on ultrasound correlating with the patient's palpable lump and pain. If pain persists cyst aspiration can be performed. ASSESSMENT: BI-RADS 2: Benign RECOMMENDATION: 1. Patient should be managed based on the clinical impression. Decision to proceed with biopsy should be based on clinical grounds and degree of clinical concern. 2. Otherwise, routine annual screening mammography. This patient's information was entered into a reminder system with a target due date for their next mammogram. Electronically signed by: Sintia Osborn DO 08/24/2024 09:28 AM EDT
--- OUTSIDE RECORDS SUMMARY | 2024-08-24 08:30 | XMS_ITS | Clinical Summary ---
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 ROJAS,LIXOBIA ? MR#: [id number] : ?1970 ? Room/Bed: Ordering Physician: SEEMA DIAL ?() Associated Orders: Mammo Screening Digital Bilat Service Date: 07/07/19 Final #[id number] - MAMMO SCREENING DIGITAL BILAT BILATERAL DIGITAL [...] Procedure Note Aurelia Romero MD - 03/20/2022 [place] [address] Patient: PRETTY ROJAS MR#:[id number] : 1970Acct#:[id number] Room/Bed: Ordering Physician: SEEMA DIAL () Associated Orders: Mammo Screening Digital Bilat Service Date: 07/07/19 Final #[id number] - MAMMO SCREENING DIGITAL BILAT BILATERAL DIGITAL [...] IS 1.7% AND LIFETIME RISK IS 17.5%. [facility] CALCULATIONS REPORT THIS PATIENT'S 10-YEAR RISK FOR [...] breasts may obscure an underlying neoplasm. Aurelia cmapos/marco:07/27/2019 09:59:49 letter sent: Additional Imaging Needed BI-RADS: 0 Incomplete: Needs additional imaging evaluation and/or prior mammograms for comparison Dictating Physician: AURELIA ROMERO MD Dictate Date/Time: 07/07/19 1237 Esigning Physician: AURELIA ROMERO MD Esign Date/Time: 07/27/19 0959 cc: SEEMA DIAL () us Seema Dial COMMUNITY NURSE G US PROCEDURES Edited Result - Final from Last 3 Months or Most Recently Relevant to Health Maintenance
== END 2024-08-24 08:16 | disposition home or self-care (01) ==
LOC: HO.MAMMO 08:15
PROVIDERS: PCP Internal Medicine; Visit Provider Advanced Practice Midwife
DX: N64.4 Mastodynia (principal); N63.15 Unspecified lump in the right breast, overlapping quadrants
CPT/HCPCS: 76642

== ENCOUNTER → 2024-08-24 08:30 | Outpatient (BNV) | payer BC, SELFPAY | PROVIDERS: PCP Internal Medicine; Visit Provider Internal Medicine | DX: N64.4 Mastodynia (principal) | CPT/HCPCS: 76642 ==

== ENCOUNTER 2024-08-28 11:26 | Outpatient (AMB) | payer BC, SELFPAY ==
--- NOTE | 2024-08-28 11:30 | A.OFFVIS_ITS ---
Vital Signs 08/28/24 11:41 Height 5 ft 6 in Weight 141 lb 4 oz BMI 22.8 BP 179/95 H Blood Pressure Location Lt brachial Position Sitting Pulse 88 Intake Visit Reasons: Palpable mass of breast Intake Note: Patient is seen in office for evaluation of a palpable mass of he breast. 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 She denies a previous history of breast problems or breast surgery. Her family history is significant for multiple family members with breast cancer including her mother who developed breast cancer in the age of 60, 3 maternal cousins and 1 paternal cousin with breast cancer. Her menarche was the age of 13 areas she is 0. Her last menstrual period was 1 week prior to examination. Her last mammogram dated 06/07/2024 revealed grouped calcifications in the upper outer quadrant not significantly changed on the prior magnification views dating back for 1 year felt to be probably benign. Follow-up diagnostic mammogram in 1 year was recommended confirmed stability. The left breast revealed no mammographic evidence of malignancy (BI-RADS 3). An ultrasound performed on 08/24/2024 revealed multiple simple cysts correlating with the patient's palpable lump and pain. A simple cyst in the 12:00 retroareolar location measured 26 x 17 x 12 mm. A simple cyst was also noted in the 9 o'clock position, 6 cm from the nipple measuring 18 x 25 mm. These were felt to be benign a routine follow-up was recommended (BI-RADS 2). [facility] Medical History Uterine fibroid Endometriosis Surgical History History of fracture of clavicle History of ovarian cystectomy Family History Father Hypertension Mother Breast cancer, Onset Age: 62 Maternal Uncle Lung cancer Maternal Grandfather Lung cancer Family/Other Breast cancer Family/Other Breast cancer Family/Other Breast cancer Family/Other Breast cancer Social History Household Members: None Housing: House Alcohol intake: current Alcohol intake frequency: a few times a month Alcohol type: beer, wine and hard liquor Patient Tobacco Use Status: Never used Tobacco e-Cigarette/Vaping Use: Never Used Second Hand Smoke Exposure: No service: No Current occupational status: employed 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 Current occupational exposures/hazards: No Sexual orientation: Straight/Heterosexual Gender identity: Female Cognitive needs: No Hearing needs: No Vision needs: No Female Reproductive History Menstrual Age of Menarche: 13 Date of last menstrual period: 08/28/24 Total pregnancies: 0 Review of Systems Const All systems reviewed & are unremarkable except as noted in HPI and below Physical Exam Vital Signs: Last Vital Signs Pulse 88 08/28/24 11:41 BP 179/95 H 08/28/24 11:41 BMI result Body Mass Index 22.8 Const General: cooperative and no acute distress Nutritional Appearance: well nourished Orientation/consciousness: patient oriented x3 Limitations: no limitations HEENT Head: Yes normocephalic and Yes atraumatic Ears: hearing grossly normal bilaterally Chest Other: Bilateral dense breast tissue Left breast: No skin change, no nipple retraction, no nipple discharge, no palpable mass, no enlarged lymph nodes. Right breast: No skin change, no nipple retraction, no nipple discharge, no palpable mass, no enlarged lymph nodes No definite palpable mass corresponding to the ultrasound findings was identified on my examination. Resp Effort & Inspection: normal respiratory effort, no audible wheezes, no cough and no respiratory distress Cardio Jugular venous distension: no JVD GI Inspection: Yes normal to inspection Skin Other: Warm, dry, no rash Neuro General: patient oriented x3 Extrem General: Yes no clubbing, cyanosis or edema Assessment & Plan Assessment & Plan (1) Palpable mass of breast: Code(s): N63.0 - Unspecified lump in unspecified breast Category: Medical (2) Cyst of breast, right, benign solitary: Code(s): N60.01 - Solitary cyst of right breast Category: Medical Plan 53-year-old female patient with a strong family history of breast cancer including her mother and multiple cousins. We discussed genetic testing and she expressed interest in proceeding with this testing. She will schedule an alternate time to return for testing. In addition the patient has a palpable mass in the right breast noted on recent examination which by ultrasound appears to be 2 simple cysts located in the 12:00 and 9 o'clock position. I could not definitively feel these well enough to allow needle aspiration in the office. I discussed the option of continued observation verses ultrasound-guided aspiration and after discussion of the risks and benefits, she wishes to proceed with an ultrasound-guided aspiration. [facility] She will follow-up for review of genetic testing and aspiration results. Orders: Orders US breast cyst asp RT Today N60.01 - Solitary cyst of right breast, N63.0 - Unspecified lump in unspecified breast US breast cyst asp ea add Today N60.01 - Solitary cyst of right breast, N63.0 - Unspecified lump in unspecified breast Coding Level of Care Code New Pt Level 4 (54425) Diagnoses Palpable mass of breast N63.0 Cyst of breast, right, benign solitary N60.01
[2024-08-28 11:41] VITALS: BP 179/95; PULSE 88; BMI 22.8
--- OUTSIDE RECORDS SUMMARY | 2024-08-28 14:00 | XMS_ITS | Clinical Summary ---
[facility] Organization [facility] it Address [address] [place] [address] Care Team Providers Care Collections Analyst Name Role Phone Unavailable Primary Care Provider [...] Vaccine (2023-2 5 season) 2024 Influenza Vaccine (Season Ended) 2025 HIB Vaccines Aged Out No longer eligi [...] age to complete this topic Meningococcal B Vaccine Aged Out No l onger eligible based on patient's age to complete [...] PM EST Narrative 07/27/2019 9:59 AM EST [place] [address] Patient: ? BOB,JHOANOBIA ? MR#: [id number] : ?1970 ? Room/Bed: Ordering Physician: SEEMA DIAL ?() Associated Orders: Mammo Screening Digital Bilat Service Date: 07/07/19 Final #[id number] - MAMMO SCREENING DIGITAL BILAT BILATERAL DIGITAL [...] Procedure Note Aurelia Romero MD - 03/20/2022 [place] [address] Patient: PRETTY ROJAS MR#:[id number] : 1970Acct#:[id number] Room/Bed: Ordering Physician: SEEMA DIAL () Associated Orders: Mammo Screening Digital Bilat Service Date: 07/07/19 Final #[id number] - MAMMO SCREENING DIGITAL BILAT BILATERAL DIGITAL [...] IS 1.7% AND LIFETIME RISK IS 17.5%. [facility] CALCULATIONS REPORT THIS PATIENT'S 10-YEAR RISK [...] cc: SEEMA DIAL () us Seema Dial ARCHITECTURAL DRA[employer] [facility] US PROCEDURES Edited Result - Final from Last 3 Months or Most Recently Relevant to Health Maintenance
== END 2024-08-28 11:59 | disposition home or self-care (01) ==
LOC: HO.HGS 11:26
PROVIDERS: PCP Internal Medicine; Visit Provider Surgery
DX: N63.0 Unspecified lump in unspecified breast (principal); N60.01 Solitary cyst of right breast
CPT/HCPCS: 99204

== ENCOUNTER → 2024-08-28 11:26 | Outpatient (BNVA) | payer BC, SELFPAY | PROVIDERS: PCP Internal Medicine; Visit Provider Surgery ==

== ENCOUNTER → 2024-09-04 09:46 | Outpatient (BNVA) | payer BC, SELFPAY | PROVIDERS: PCP Internal Medicine; Visit Provider Surgery | DX: Z13.79 Encounter for other screening for genetic and chromosomal anomalies (principal) | CPT/HCPCS: 99211 ==

== ENCOUNTER 2024-09-05 15:35 | Outpatient (AMB) | payer BC, SELFPAY ==
--- NOTE | 2024-09-05 15:46 | A.OFFPC_ITS ---
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 Accompanied by: Self / Same As Patient Allergies No Known Allergies Allergy (Verified 09/05/24 15:56) Medication List - Last Reconciled 09/05/24 by Roxanne Cordero MD No Known Home Meds Tobacco use date assessed: 09/05/24 Dental Screening Dental Screen Date: 09/05/24 Did you have a dental visit in the last 12 months?: No Did you have a dental problem in the last 6 months where you did not have access to dental care?: No Was dental information given to patient?: Patient has dentist HPI HPI Comments History of Present Illness Details The patient is a 53-year-old female presenting with a breast mass and possible allergic reactions. She reports an acute onset of a breast mass noticed suddenly, described as a persistent ball in her breast. An ultrasound was conducted, and a biopsy is scheduled for September 20. Concurrent to this, she experiences episodic allergic-like symptoms, describing them as a triggering sensation nico to an allergy, which manifests in varying body regions. These symptoms are controlled with antihistamines and cortisone cream, suggesting a possible allergic component. The patient noted that the sensations are not visible and considered stress as a potential inciting factor. However, antihistamines have been effectively mitigating the symptoms. [facility] Medical History (Updated 09/05/24 @ 16:02 by Roxanne Cordero MD) Uterine fibroid Endometriosis Surgical History History of fracture of clavicle History of ovarian cystectomy Family History Father Hypertension Mother Breast cancer, Onset Age: 62 Maternal Uncle Lung cancer Maternal Grandfather Lung cancer Family/Other Breast cancer Family/Other Breast cancer Family/Other Breast cancer Family/Other Breast cancer Social History Household Members: None Housing: House Alcohol intake: current Alcohol intake frequency: a few times a month Alcohol type: beer, wine and hard liquor Patient Tobacco Use Status: Never used Tobacco e-Cigarette/Vaping Use: Never Used Second Hand Smoke Exposure: No service: No Current occupational status: employed 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 1. Little interest or pleasure in doing things: not at all 2. Feeling down, depressed, or hopeless: not at all 3. Trouble falling or staying asleep, or sleeping too much: not at all 4. Feeling tired or having little energy: not at all 5. Poor appetite or overeating: not at all 6. Feeling bad about yourself - or that you are a failure or have let yourself or your family down: not at all 7. Trouble concentrating on things, such as reading the newspaper or watching television: not at all 8. Moving or speaking so slowly that other people could have noticed. Or the opposite - being so fidgety or restless that you have been moving around a lot more than usual: not at all 9. Thoughts that you would be better off or of hurting yourself in some way: not at all Total score: 0 Depression Screening Interpretation: Negative Depression Screening Done: Yes 48139 - PHQ-9 Billing: Yes Source: Developed by Drs. Arnulfo Arthur, Nathalia Cottrell, Pedrito Hart and colleagues, with an educational kyle from [employer]. Thrive Questionnaire Date Thrive assessed: 09/05/24 I am a: Patient What is your living situation today?: I have a steady place to live Within the past 12 months, did the food you bought not last and you didn't have the money to get more?: Never true Within the past 12 months, did you worry whether your food would run out before you got money to buy more?: Never true Do you have trouble paying for medicines?: No Do you have trouble getting transportation to medical appointments?: No Do you have trouble paying your heating and electricity bill?: No Do you have trouble taking care of your child, family member or friend?: No Do you have trouble with day-to-day activities such as bathing, preparing meals, shopping, managing finances, etc.?: No Are you currently unemployed and looking for a job?: No Are you interested in more education?: No Please select the resources that you would like help with: None Currently or been in a relationship where the following occur: No concerns reported THRIVE Score: 0 AUDIT C Alcohol Use Questionnaire (AUDIT-C) 1. How often do you have a drink containing alcohol?: 2-4 times a month 2. How many drinks containing alcohol do you have on a typical day when you are drinking?: 3 or 4 3. How often do you have six or more drinks on one occasion?: Never Total Score: 3 Score Reviewed/Action Taken: No JOSE ALEJANDRO-7 AMB Questionnaire JOSE ALEJANDRO-7 Date JOSE ALEJANDRO - 7 assessed: 09/05/24 Feeling nervous, anxious, or on edge: 0 = Not at all Not being able to stop or control worryin = Not at all Worrying too much about different things: 0 = Not at all Trouble relaxin = Not at all Being so restless that it is hard to sit still: 0 = Not at all Becoming easily annoyed or irritable: 0 = Not at all Feeling afraid as if something awful might happen: 0 = Not at all Total JOSE ALEJANDRO-7 score (0-4 normal; 5-9 mild; 10-14 moderate; 15-21 severe): 0 Source: Developed by Drs. Arnulfo Arthur, Nathalia Cottrell, Pedrito Hart and colleagues, with an educational kyle from [employer]. JOSE ALEJANDRO-7 Assessment Billing JOSE ALEJANDRO-7 Assessment Tool: JOSE ALEJANDRO-7 Assessment 42666 Review of Systems Const All systems reviewed & are unremarkable except as noted in HPI and below Card Denies chest pain at rest, Denies chest pain with activity, Denies edema, Denies irregular heart rhythm, Denies claudication, Denies dyspnea, Denies dyspnea on exertion, Denies orthopnea, Denies paroxysmal nocturnal dyspnea and Denies slow heart rate Resp Denies cough, Denies dyspnea and Denies dyspnea on exertion GI Denies abdominal pain, Denies change in bowel habits, Denies excessive flatus, Denies nausea and Denies vomiting Denies urinary incontinence, Denies urinary hesitancy and Denies urinary urgency Musc Denies atrophy, Denies deformity and Denies limited range of motion Physical exam (Primary Care) Vital Signs: Last Vital Signs BP 126/80 09/05/24 15:48 BMI result Body Mass Index 22.8 Tobacco/Smoking Status: Tobacco use Status Tobacco use date assessed 09/05/24 09/05/24 15:52 Patient Tobacco Use Status Never used Tobacco 09/05/24 15:52 e-Cigarette/Vaping Use Never Used 09/05/24 15:52 PHQ-9: PHQ-9 Score PHQ-9: Total score 0 09/05/24 16:03 Depression Screening Interpretation: Negative Thrive Assessment: Date of Thrive Assessment Date Thrive assessed 09/05/24 09/05/24 15:52 Currently or been in a relationship where the following occur: No concerns reported Resp Effort & Inspection: normal respiratory effort Auscultation: clear to auscultation bilaterally Cardio Jugular venous distension: no JVD Rate: regular rate Rhythm: regular rhythm Heart sounds: S1 normal heart sound present and S2 normal heart sound present Extrem General: Yes full ROM Coding Level of Care Code Est Pt Level 3 (01050) Complex EM visit Add On G2211 Diagnoses Allergic reaction T78.40XA Palpable mass of breast N63.0 Additional Codes JOSE ALEJANDRO-7 Assessment Billing - JOSE ALEJANDRO-7 Assessment Tool: JOSE ALEJANDRO-7 Assessment 87313 ([id number]) PHQ-9 - 35310 - PHQ-9 Billing: Yes ([id number]) Time Spent (min) 19 Assessment & Plan Assessment & Plan (1) Allergic reaction: Code(s): T78.40XA - Allergy, unspecified, initial encounter Category: Medical (2) Palpable mass of breast: Code(s): N63.0 - Unspecified lump in unspecified breast Category: Medical Plan The patient presented with a breast mass and symptoms of possible allergic reactions. An ultrasound was already conducted, and a biopsy is upcoming on September 20 to identify the nature of the breast mass. For the allergic symptoms, an project portfolio analyst referral was suggested due to symptom control with antihistamines. Gabapentin was prescribed for stress-related neck tension, and she continues antihistamines and cortisone during episodes. Follow-up care will ensure effective monitoring of these conditions. Patient was informed and verbally consented to the use of an ambient scribe for clinic note documentation during this visit. During the visit, I discussed the current management of both the breast mass and possible allergic reactions with the patient. The breast mass requires further evaluation, and the scheduled biopsy on September 20 will provide more information. The patient is aware of the importance of this procedure and potential outcomes. The potential allergic reactions will be further explored through an project portfolio analyst referral, as symptom control is currently adequate with antihistamines and topical cortisone. I provided information on the continued use of Gabapentin for stress-related neck issues, which she previously found effective. Our discussions covered diagnostic processes, treatment options, and the rationale behind these decisions, ensuring the patient feels informed and involved in her care plan. Orders: Orders Lipid Panel Today Z00.00 - Encounter for general adult medical examination without abnormal findings Comprehensive [place]. Panel Fast Today Z00.00 - Encounter for general adult medical examination without abnormal findings Referrals Allergy & Immunology Referral T78.40XA - Allergy, unspecified, initial encounter Patient Instructions: - Continue taking antihistamines as needed for potential allergic reactions. - Apply cortisone cream during any flare-ups of symptoms. - Attend the breast biopsy appointment scheduled for September 20. - Follow up with an project portfolio analyst at [place] to explore the cause of allergic-like symptoms. - Use Gabapentin as prescribed for stress-related neck tension. - Contact the clinic if the symptoms worsen or if there are any significant changes in health.
[2024-09-05 15:48] VITALS: BP 126/80; BMI 22.8
--- OUTSIDE RECORDS SUMMARY | 2024-09-05 18:03 | XMS_ITS | Clinical Summary ---
[facility] Address [address] [place] [address] Care Team Providers Care Newspaper Stuffer Name Role Phone Unavailable Primary Care Provider [...] PM EST Narrative 07/27/2019 9:59 AM EST [place] [address] Patient: ? BOB,JHOANOBIA ? MR#: [id number] : ?1970 ? Room/Bed: Ordering Physician: SEEMA DIAL ?() Associated Orders: Mammo Screening Digital Bilat Service Date: 07/07/19 Final #[id number] - MAMMO SCREENING DIGITAL BILAT BILATERAL DIGITAL [...] Procedure Note Aurelia Romero MD - 03/20/2022 [place] [address] Patient: PRETTY ROJAS MR#:[id number] : 1970Acct#:[id number] Room/Bed: Ordering Physician: SEEMA DIAL () Associated Orders: Mammo Screening Digital Bilat Service Date: 07/07/19 Final #[id number] - MAMMO SCREENING DIGITAL BILAT BILATERAL DIGITAL [...] IS 1.7% AND LIFETIME RISK IS 17.5%. [facility] CALCULATIONS REPORT THIS PATIENT'S 10-YEAR RISK [...] cc: SEEMA DIAL () us Seema Dial IMPERSONATOR CHARACTER [facility] US PROCEDURES Edited Result - Final from Last 3 Months or Most Recently Relevant to Health Maintenance
== END 2024-09-05 16:15 | disposition home or self-care (01) ==
LOC: HO.HMCH 15:36
PROVIDERS: PCP Internal Medicine; Visit Provider Internal Medicine
DX: T78.40XA Allergy, unspecified, initial encounter (principal); N63.0 Unspecified lump in unspecified breast

== ENCOUNTER → 2024-09-05 15:35 | Outpatient (BNVA) | payer BC, SELFPAY | PROVIDERS: PCP Internal Medicine; Visit Provider Internal Medicine | DX: T78.40XA Allergy, unspecified, initial encounter (principal); N63.0 Unspecified lump in unspecified breast | CPT/HCPCS: 96127 ==

== ENCOUNTER 2024-09-20 07:54 | Outpatient (REF) | payer BC, SELFPAY ==
--- NOTE | ~2024-09-20 | MM_ITS ---
PROCEDURE: ULTRASOUND-GUIDED RIGHT BREAST BIOPSY two sites CLINICAL INFORMATION: Two minimally complicated cysts in the right breast for which aspiration/biopsy were requested. COMPARISON: [facility] on PACS. TECHNIQUE: The details of the procedure, as well as the risks, benefits, and alternatives to the procedure were explained to the patient in detail and all of her questions were answered, after which, written informed consent was obtained. PROCEDURE: Prior to the procedure, sonography revealed minimally complicated cyst at 12:00 and a minimally complicated cyst at 9:00 in the right breast. A time-out was performed, the lesions intended for biopsy was targeted and the skin of the right breast was then prepped and draped in the usual sterile fashion. Right breast 12:00: Using sonographic guidance, sterile technique, and 1% lidocaine without epinephrine for local anesthesia, a total of 5 cores were obtained through the targeted area with a 14-gauge biopsy device. At the completion of tissue sampling, a single butterfly metallic clip was deposited at the biopsy site. An appropriate sample was obtained. Right breast 9:00: Using sonographic guidance, sterile technique, and 1% lidocaine without epinephrine for local anesthesia, a single aspiration sample of brown-tinged fluid was obtained through the targeted area with a 18-gauge needle and submitted for pathology cytology. At the completion of sampling, a single coil metallic clip was deposited at the aspiration site. An appropriate sample was obtained. The postprocedure 2-view direct digital mammogram reveals satisfactory positioning of the biopsy/aspiration clips. The patient tolerated the procedure well and, after assuring adequate hemostasis, was discharged in good condition after reviewing postbiopsy breast care instructions. Final pathology results are pending. MM/MM tomosynthesis diagnostic RT IMPRESSION: 1. Uncomplicated sonographically-guided core biopsy of the right breast two sites. The 2-view direct digital postprocedure mammogram reveals satisfactory positioning of the biopsy clip. 2. Final pathology results are pending. A separate report with final recommendations will be issued once these results are made available. Electronically signed by: Sintia Osborn DO 09/20/2024 10:49 AM EDT
--- OUTSIDE RECORDS SUMMARY | 2024-09-20 07:59 | XMS_ITS | Clinical Summary ---
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 BOB,JHOANOBIA ? MR#: [id number] : ?1970 ? Room/Bed: Ordering Physician: SEEMA DIAL ?() Associated Orders: Mammo Screening Digital Bilat Service Date: 07/07/19 Final #[id number] - MAMMO SCREENING DIGITAL BILAT BILATERAL DIGITAL [...] 1.7% AND LIFETIME RISK IS 17.5%. [facility] CALCULATIONS REPORT THIS PATIENT'S 10-YEAR RISK FOR [...] Procedure Note Aurelia Romero MD - 03/20/2022 [place] [address] Patient: PRETTY ROJAS MR#:[id number] : 1970Acct#:[id number] Room/Bed: Ordering Physician: SEEMA DIAL () Associated Orders: Mammo Screening Digital Bilat Service Date: 07/07/19 Final #[id number] - MAMMO SCREENING DIGITAL BILAT BILATERAL DIGITAL [...] IS 1.7% AND LIFETIME RISK IS 17.5%. [facility] CALCULATIONS REPORT THIS PATIENT'S 10-YEAR RISK FOR [...] cc: SEEMA DIAL () us Seema Dial DIRECTOR OF HEALTH EDUCATION [facility] [place] PROCEDURES Edited Result - Final from Last 3 Months or Most Recently Relevant to Health Maintenance
[2024-09-20] MEDS: Lidocaine HCl 1 % 20 ML VIAL 16 ML SUBCUT (09:57)
[2024-09-20] MEDS: Sodium Bicarbonate 8.4% 50 MEQ/50 ML VIAL SUBCUT (09:58)
== END 2024-09-20 07:55 | disposition home or self-care (01) ==
LOC: HO.MAMMO 07:54
PROVIDERS: PCP Internal Medicine; Visit Provider Surgery
DX: N60.01 Solitary cyst of right breast (principal); N64.89 Other specified disorders of breast
CPT/HCPCS: 19000; 19001; 19083; 77061; 77065; 88173; 88305; J2003

== ENCOUNTER → 2024-09-20 08:00 | Outpatient (BNV) | payer BC, SELFPAY | PROVIDERS: PCP Internal Medicine; Visit Provider Internal Medicine | DX: N63.15 Unspecified lump in the right breast, overlapping quadrants (principal); N60.01 Solitary cyst of right breast | CPT/HCPCS: 19000; 19083; 19084; 77065 ==

== ENCOUNTER 2024-09-27 14:11 | Outpatient (AMB) | payer BC, SELFPAY ==
--- NOTE | 2024-09-27 14:19 | MHC.OFFVIS ---
Vital Signs 09/27/24 14:24 Height 5 ft 6 in Weight 144 lb BMI 23.2 BP 144/85 H Blood Pressure Location Lt brachial Position Sitting Intake Visit Reasons: s/p ultrasound and mammogram results, rt B mass Intake Note: Patient is seen in office for ultrasound & mammogram results, following right breast mass. 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 She denies a previous history of breast problems or breast surgery. Her family history is significant for multiple family members with breast cancer including her mother who developed breast cancer in the age of 60, 3 maternal cousins and 1 paternal cousin with breast cancer. Her menarche was the age of 13 areas she is 0. Her last menstrual period was 1 week prior to examination. Her last mammogram dated 06/07/2024 revealed grouped calcifications in the upper outer quadrant not significantly changed on the prior magnification views dating back for 1 year felt to be probably benign. Follow-up diagnostic mammogram in 1 year was recommended confirmed stability. The left breast revealed no mammographic evidence of malignancy (BI-RADS 3). An ultrasound performed on 08/24/2024 revealed multiple simple cysts correlating with the patient's palpable lump and pain. A simple cyst in the 12:00 retroareolar location measured 26 x 17 x 12 mm. A simple cyst was also noted in the 9 o'clock position, 6 cm from the nipple measuring 18 x 25 mm. An ultrasound-guided biopsy was performed of the 12:00 and 09:00 lesions. The 09:00 lesion revealed benign tissue with no atypia or malignancy. The 12:00 lesion revealed pseudoangiomatous stromal hyperplasia without atypia or malignancy. She tolerated the procedure well and has some mild discomfort from the biopsy sites. She denies any redness or discharge from the incisions. [facility] Medical History Uterine fibroid Endometriosis Surgical History History of fracture of clavicle History of ovarian cystectomy Family History Father Hypertension Mother Breast cancer, Onset Age: 62 Maternal Uncle Lung cancer Maternal Grandfather Lung cancer Family/Other Breast cancer Family/Other Breast cancer Family/Other Breast cancer Family/Other Breast cancer Social History Household Members: None Housing: House Alcohol intake: current Alcohol intake frequency: a few times a month Alcohol type: beer, wine and hard liquor Patient Tobacco Use Status: Never used Tobacco e-Cigarette/Vaping Use: Never Used Second Hand Smoke Exposure: No service: No Current occupational status: employed 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 Current occupational exposures/hazards: No Sexual orientation: Straight/Heterosexual Gender identity: Female Cognitive needs: No Hearing needs: No Vision needs: No Female Reproductive History Menstrual Age of Menarche: 13 Review of Systems Const All systems reviewed & are unremarkable except as noted in HPI and below Physical Exam Vital Signs: Last Vital Signs BP 144/85 H 09/27/24 14:24 BMI result Body Mass Index 23.2 Const General: cooperative and no acute distress Nutritional Appearance: well nourished Orientation/consciousness: patient oriented x3 Limitations: no limitations HEENT Head: Yes normocephalic and Yes atraumatic Ears: hearing grossly normal bilaterally Chest Other: Biopsy sites in the right breast at the 09:00 and 11:00 location are clean and intact without hematoma or seroma. No evidence of infection. Resp Effort & Inspection: normal respiratory effort, no audible wheezes, no cough and no respiratory distress Cardio Jugular venous distension: no JVD GI Inspection: Yes normal to inspection Skin Other: Warm, dry, no rash Neuro General: patient oriented x3 Extrem General: Yes no clubbing, cyanosis or edema Assessment & Plan Assessment & Plan (1) Palpable mass of breast: Code(s): N63.0 - Unspecified lump in unspecified breast Category: Medical (2) Cyst of breast, right, benign solitary: Code(s): N60.01 - Solitary cyst of right breast Category: Medical Plan Results of the needle core biopsy performed under ultrasound guidance are negative for atypia or malignancy. She tolerated the procedure well and her wounds are healing nicely. She should continue with routine follow-up is welcome to call for any new concerns regarding her breasts. Coding Level of Care Code Est Pt Level 3 (85256) Diagnoses Palpable mass of breast N63.0 Cyst of breast, right, benign solitary N60.01
[2024-09-27 14:24] VITALS: BP 144/85; BMI 23.2
--- OUTSIDE RECORDS SUMMARY | 2024-09-27 15:05 | XMS_ITS | Clinical Summary ---
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 BOB,JHOANOBIA ? MR#: [id number] : ?1970 ? Room/Bed: Ordering Physician: SEEMA DIAL ?() Associated Orders: Mammo Screening Digital Bilat Service Date: 07/07/19 Final #[id number] - MAMMO SCREENING DIGITAL BILAT BILATERAL DIGITAL [...] Procedure Note Aurelia Romero MD - 03/20/2022 [place] [address] Patient: PRETTY ROJAS MR#:[id number] : 1970Acct#:[id number] Room/Bed: Ordering Physician: SEEMA DIAL () Associated Orders: Mammo Screening Digital Bilat Service Date: 07/07/19 Final #[id number] - MAMMO SCREENING DIGITAL BILAT BILATERAL DIGITAL [...] IS 1.7% AND LIFETIME RISK IS 17.5%. [facility] CALCULATIONS REPORT THIS PATIENT'S 10-YEAR RISK [...] cc: SEEMA DIAL () us Seema Dial [facility] [place]EDURES Edited Result - Final from Last 3 Months or Most Recently Relevant to Health Maintenance
== END 2024-09-27 14:40 | disposition home or self-care (01) ==
LOC: HO.HGS 14:12
PROVIDERS: PCP Internal Medicine; Visit Provider Surgery
DX: N63.0 Unspecified lump in unspecified breast (principal); N60.01 Solitary cyst of right breast
CPT/HCPCS: 99213

== ENCOUNTER → 2024-09-27 14:11 | Outpatient (BNVA) | payer BC, SELFPAY | PROVIDERS: PCP Internal Medicine; Visit Provider Surgery ==

== ENCOUNTER 2025-01-08 14:36 | Outpatient (REF) | payer BC, SELFPAY ==
[2025-01-08 21:38] LABS: CT PCR NOT DETECTED (Not Detect.); NG PCR NOT DETECTED (Not Detect.)
[2025-01-08 21:51] LABS: Bacterial Vaginosis PCR NEGATIVE (Negative); Candida Group PCR NOT DETECTED (Not Detect); Candida glab krusei PCR NOT DETECTED (Not Detect); Trichomonas vaginalis PCR NOT DETECTED (Not Detect)
== END 2025-01-08 14:37 | disposition home or self-care (01) ==
LOC: HO.LNP 14:36
PROVIDERS: PCP Internal Medicine; Visit Provider Advanced Practice Midwife
DX: Z01.419 Encounter for gynecological examination (general) (routine) without abnormal findings (principal); D25.9 Leiomyoma of uterus, unspecified; N93.9 Abnormal uterine and vaginal bleeding, unspecified
CPT/HCPCS: 81515; 87491; 87591

== ENCOUNTER 2025-01-08 14:36 | Outpatient (AMB) | payer BC, SELFPAY ==
--- NOTE | 2025-01-08 14:47 | A.OFFVIS_ITS ---
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/Do not reschedule X3 Intake Note: annual for patient today no complaints not needing vaginal swabs Energy Control Officer Required: No Energy Control Officer Services: Energy Control Officer Offered & Declined Information Interpreted: non-clinical & clinical Varnisher: Varnisher Present (Najma) Allergies No Known Allergies Allergy (Verified 01/08/25 14:54) Medication List - Last Reconciled 01/08/25 by Lyn Wilson LPN gabapentin 100 mg PO TID 30 days indomethacin 50 mg PO BID 30 days Is last menstrual period known: Yes Last menstrual period: 01/01/25 Post menopausal: No Patient : No Do you need a note to return to daycare/school/sports/work: No HPI Comments Details: Patient is a premenopausal 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 Currently not sexually active. Menses are regular, shorter x 3-4d. Menarche age 13. Denies any vaginal dryness or irritation. STI testing offered; she accepts. Attempting to eat a healthy diet with calcium and vitamin D and stays active with exercise. Last pap smear; 2021, negative. Last mammogram; 2024. Breast biopsy-benign Colonoscopy is not UTD. FH breast cancer. [facility] Medical History Uterine fibroid Endometriosis Surgical History History of fracture of clavicle History of ovarian cystectomy Family History Father Hypertension Mother Breast cancer, Onset Age: 62 Maternal Uncle Lung cancer Maternal Grandfather Lung cancer Family/Other Breast cancer Family/Other Breast cancer Family/Other Breast cancer Family/Other Breast cancer Social History Household Members: None Housing: House Alcohol intake: current Alcohol intake frequency: a few times a month Alcohol type: beer, wine and hard liquor Patient Tobacco Use Status: Never used Tobacco e-Cigarette/Vaping Use: Never Used Second Hand Smoke Exposure: No Patient : No service: No Current occupational status: employed 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 Current occupational exposures/hazards: No Sexual orientation: Straight/Heterosexual Gender identity: Female Cognitive needs: No Hearing needs: No Vision needs: No Female Reproductive History Menstrual Age of Menarche: 13 Date of last menstrual period: 01/01/25 Total pregnancies: 0 Date of last pap smear: 05/19/22 (neg pap and hpv) History of abnormal pap smear: No History of STI: No Date of Mammogram: 09/20/24 Review of Systems Const All systems reviewed & are unremarkable except as noted in HPI and below Reports as per HPI Eyes Reports no additional complaints ENT Reports no additional complaints Card Reports no additional complaints Resp Reports no additional complaints GI Reports as per HPI and Reports no additional complaints Reports as per HPI Musc Reports no additional complaints Skin/Breast Reports as per HPI Neuro Reports no additional complaints Psych Reports no additional complaints Endo Reports no additional complaints Julio C/Lymph Reports no additional complaints Aller/Immun Reports no additional complaints Physical Exam Vital Signs: Last Vital Signs BP 112/68 01/08/25 14:51 BMI result Body Mass Index 23.1 Const General: cooperative, healthy appearing, no acute distress, well developed and alert Orientation/consciousness: patient oriented x3 HEENT Head: Yes normal to inspection Eyes General: appearance normal, both eyes and all related structures Neck Neck: Yes normal visual inspection Thyroid: Thyroid normal Chest Chest palpation & inspection: normal inspection of the chest and other (no puckering, dimpling, peau de orange, retraction, discharge, masses) Breast/axilla inspection: normal inspection of the breasts Breast/axilla palpation: normal palpation of the breasts Resp Effort & Inspection: normal respiratory effort GI Inspection: Yes normal to inspection and Yes scar Palpation (GI): Soft to palpation Rectal Exam - Female: deferred General: Yes bladder normal to palpation External Female Exam: normal external appearance and normal appearance of the urethra Speculum Exam - Vagina: normal appearance of the vagina, normal palpation and normal vaginal discharge Speculum Exam - Cervix: normal appearance of the cervix and normal palpation Bimanual exam- vagina & uterus: normal bimanual exam, normal palpation, bladder normal to palpation, normal palpation, non-tender and enlarged Bimanual Exam- Adnexa, other: no masses Skin General skin exam: no rashes or lesions noted Rashes: no rashes Neuro General: patient oriented x3 Cognition (Neuro): normal cognition Extrem General: Yes normal to inspection Psych Attitude: cooperative Thought process: Normal thought process present Assessment & Plan Assessment & Plan (1) Encounter for well woman exam with routine gynecological exam: Code(s): Z01.419 - Encounter for gynecological examination (general) (routine) without abnormal findings Category: Medical Plan: Discussed: Current recommendations for pap smears per ASCCP guidelines. Breast awareness, periodic self breast exams and yearly mammogram. Maintain a healthy lifestyle, well balanced diet including Calcium 1,200 mg and Vitamin D 600 IU daily, and routine exercise. Use of condoms for STI prevention if indicated. Menopause verses perimenopause. Menopause is definitive of 1 year of no menses or 12 months in succession. Report any abnormal uterine bleeding in example prolonged episodes, or short intervals less than 24 days. Patient verbalizes understanding and agrees to the plan of care. She was given opportunity to ask questions and all questions were answered to the best of my ability. 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 This note is constructed using voice recognition software. While every effort has been made to ensure accuracy, audio/visual operator errors may have been included. (2) Uterine fibroid: Code(s): D25.9 - Leiomyoma of uterus, unspecified Category: Medical Qualifiers: Uterine leiomyoma location: unspecified location Qualified Code(s): D25.9 - Leiomyoma of uterus, unspecified Plan Counseled re: Leiomyoma: common pelvic neoplasm. Differential diagnosis-may include but not limited to- leiomyosarcoma which is a rare uterine sarcoma 3- 7/100,000, difficult to distinguish from fibroids on ultrasound from uterine sarcoma's. Unlikely any single test will have a highly positive predictive value. Hysterectomy is not recommended for sole purpose of excluding malignant neoplasm. Consult for surgical exploration, medical treatment, other treatments, verses expectant management, pros and cons, risks and benefits. Expectant management follow up in 6 months, then yearly for stability. Patient prefers to proceed with expectant management. Referral to MD if indicated for level of care if indicated Report any AUB, pelvic pressure, bloating, or pain. Total time I personally spent on visit and management today: ?15 minutes. Time spent included review of pertinent office notes in the electronic health record; review of laboratory and imaging results; review of personal family medical history; performing physical exam; discussing diagnosis and plan of care with the patient; documenting the encounter in the EMR. This note is constructed using voice recognition software. While every effort has been made to ensure accuracy, audio/visual operator errors may have been included. Orders: Orders Bacterial Vaginosis Panel Today N93.9 - Abnormal uterine and vaginal bleeding, unspecified CT NG by PCR Vag/Cerv Today N93.9 - Abnormal uterine and vaginal bleeding, unspecified US pelvic and transvaginal Today D25.9 - Leiomyoma of uterus, unspecified Coding Level of Care Code Est Pt Level 2 (34996) Est Pt Prev Care 40-64y(11332) Diagnoses Encounter for well woman exam with routine gynecological exam Z01.419 Uterine leiomyoma, unspecified location D25.9 Uterine leiomyoma location: unspecified location
[2025-01-08 14:51] VITALS: BP 112/68; BMI 23.1
--- OUTSIDE RECORDS SUMMARY | 2025-01-08 15:57 | XMS_ITS | Clinical Summary ---
Author Organization [facility] it Address [address] [place] [address] Care Team Providers Care Associate Name Role Phone Unavailable Primary Care Provider [...] 11/06/2021 Zoster Vaccines (1 of 2) 11/06/2021 COVID-19 Vaccine (1 - 2023-2 5 season) 2024 Depression Screening 05/23/2024 Influenza Vaccine (#1) 2025 HIB Vaccines Aged Out No longer [...] PM EST Narrative 07/27/2019 9:59 AM EST [facility] [address] [address] Patient: PRETTY ROJAS MR#: [id number] : 1970 Room/Bed: Ordering Physician: SEEMA DIAL () Associated Orders: Mammo Screening Digital Bilat Service Date: 07/07/19 Final #[id number] - MAMMO SCREENING DIGITAL BILAT BILATERAL DIGITAL [...] IS 1.7% AND LIFETIME RISK IS 17.5%. [facility] CAL[facility] THIS PATIENT'S 10-YEAR RISK FOR [...] Date/Time: 07/27/19 0959 cc: SEEMA DIAL () Procedure Note Aurelia Romero MD - 03/20/2022 [facility] [address] [address] Patient: PRETTY ROJAS MR#:[id number] : 1970Acct#:[id number] Room/Bed: Ordering Physician: SEEMA DIAL () Associated Orders: Mammo Screening Digital Bilat Service Date: 07/07/19 Final #[id number] - MAMMO SCREENING DIGITAL BILAT BILATERAL DIGITAL [...] IS 1.7% AND LIFETIME RISK IS 17.5%. [facility] CALCULATIONS REPORT THIS PATIENT'S 10-YEAR RISK FOR [...] cc: SEEMA DIAL () us Seema Dial NP Torri US PROCEDURES Edited Result - Final from Last 3 Months or Most Recently Relevant to Health Maintenance
== END 2025-01-09 07:38 | disposition home or self-care (01) ==
LOC: HO.HWS 14:37
PROVIDERS: PCP Internal Medicine; Visit Provider Advanced Practice Midwife
DX: Z01.419 Encounter for gynecological examination (general) (routine) without abnormal findings (principal); D25.9 Leiomyoma of uterus, unspecified
CPT/HCPCS: 99212; 99396; 99459

== ENCOUNTER 2025-01-09 13:56 | Outpatient (AMB) | payer BC, SELFPAY ==
[2025-01-09 14:13] VITALS: BP 102/76; PULSE 74; RESP 18; TEMP 36.3; O2SAT 94; BMI 22.8
--- NOTE | 2025-01-09 14:13 | A.OFFPC_ITS ---
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 Required: No Accompanied by: Self / Same As Patient Allergies No Known Allergies Allergy (Verified 01/09/25 14:35) Medication List - Last Reconciled 01/09/25 by Roxanne Cordero MD gabapentin 100 mg PO TID 30 days indomethacin 50 mg PO BID 30 days Tobacco use date assessed: 01/09/25 Dental Screening Dental Screen Date: 01/09/25 Did you have a dental visit in the last 12 months?: No Did you have a dental problem in the last 6 months where you did not have access to dental care?: No Was dental information given to patient?: Patient has dentist HPI HPI Comments History of Present Illness Details The patient is a 54-year-old female presenting for an annual physical examination. The patient has a history of a breast cyst in the right breast, which was biopsied and found to be benign. She underwent a mammogram in September, which was part of her routine screening. The patient reports a history of endometriosis, which she associates with stress and tension, leading to headaches and neck pain. She finds relief with specific treatments that she has been using since her time in [facility]. Her family history is significant for hypertension, as her father had high blood pressure, and her mother from breast cancer at the age of 62. The patient does not smoke and consumes alcohol socially, primarily on weekends. She has not received a tetanus vaccine in the past ten years and has not yet completed her Cologuard test for colon cancer screening. - Mammogram completed in September - Pap smear completed in 2021 - Tetanus vaccine due - Colon cancer screening with Cologuard pending [facility] Medical History Uterine fibroid Endometriosis Surgical History History of fracture of clavicle History of ovarian cystectomy Family History Father Hypertension Mother Breast cancer, Onset Age: 62 Maternal Uncle Lung cancer Maternal Grandfather Lung cancer Family/Other Breast cancer Family/Other Breast cancer Family/Other Breast cancer Family/Other Breast cancer Social History Household Members: None Housing: House Alcohol intake: current Alcohol intake frequency: a few times a month Alcohol type: beer, wine and hard liquor Patient Tobacco Use Status: Never used Tobacco e-Cigarette/Vaping Use: Never Used Second Hand Smoke Exposure: No service: No Current occupational status: employed 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 1. Little interest or pleasure in doing things: not at all 2. Feeling down, depressed, or hopeless: not at all 3. Trouble falling or staying asleep, or sleeping too much: not at all 4. Feeling tired or having little energy: not at all 5. Poor appetite or overeating: not at all 6. Feeling bad about yourself - or that you are a failure or have let yourself or your family down: not at all 7. Trouble concentrating on things, such as reading the newspaper or watching television: not at all 8. Moving or speaking so slowly that other people could have noticed. Or the opposite - being so fidgety or restless that you have been moving around a lot more than usual: not at all 9. Thoughts that you would be better off or of hurting yourself in some way: not at all Total score: 0 Depression Screening Interpretation: Negative Depression Screening Done: Yes 73157 - PHQ-9 Billing: Yes Source: Developed by Drs. Arnulfo Arthur, Nathalia Cottrell, Pedrito Hart and colleagues, with an educational kyle from Home Inventory S[pecialists. Thrive Questionnaire Date Thrive assessed: 01/02/25 I am a: Patient What is your living situation today?: I have a steady place to live Within the past 12 months, did the food you bought not last and you didn't have the money to get more?: Never true Within the past 12 months, did you worry whether your food would run out before you got money to buy more?: Never true Do you have trouble paying for medicines?: No Do you have trouble getting transportation to medical appointments?: No Do you have trouble paying your heating and electricity bill?: No Do you have trouble taking care of your child, family member or friend?: No Do you have trouble with day-to-day activities such as bathing, preparing meals, shopping, managing finances, etc.?: No Are you currently unemployed and looking for a job?: No Are you interested in more education?: No Please select the resources that you would like help with: None Currently or been in a relationship where the following occur: No concerns reported THRIVE Score: 0 AUDIT C Alcohol Use Questionnaire (AUDIT-C) 1. How often do you have a drink containing alcohol?: 2-4 times a month 2. How many drinks containing alcohol do you have on a typical day when you are drinking?: 1 or 2 3. How often do you have six or more drinks on one occasion?: Never Total Score: 2 Score Reviewed/Action Taken: No JOSE ALEJANDRO-7 AMB Questionnaire JOSE ALEJANDRO-7 Date JOSE ALEJANDRO - 7 assessed: 09/05/24 Feeling nervous, anxious, or on edge: 0 = Not at all Not being able to stop or control worryin = Not at all Worrying too much about different things: 1 = Several days Trouble relaxin = Several days Being so restless that it is hard to sit still: 0 = Not at all Becoming easily annoyed or irritable: 0 = Not at all Feeling afraid as if something awful might happen: 0 = Not at all Total JOSE ALEJANDRO-7 score (0-4 normal; 5-9 mild; 10-14 moderate; 15-21 severe): 2 Source: Developed by Drs. Arnulfo Arthur, Nathalia Cottrell, Pedrito Hart and colleagues, with an educational kyle from Home Inventory S[pecialists. JOSE ALEJANDRO-7 Assessment Billing JOSE ALEJANDRO-7 Assessment Tool: JOSE ALEJANDRO-7 Assessment 98660 Review of Systems Const All systems reviewed & are unremarkable except as noted in HPI and below Card Denies chest pain at rest, Denies chest pain with activity, Denies edema, Denies irregular heart rhythm, Denies claudication, Denies dyspnea, Denies dyspnea on exertion, Denies orthopnea, Denies paroxysmal nocturnal dyspnea and Denies slow heart rate Resp Denies cough, Denies dyspnea and Denies dyspnea on exertion GI Denies abdominal pain, Denies change in bowel habits, Denies excessive flatus, Denies nausea and Denies vomiting Denies urinary incontinence, Denies urinary hesitancy and Denies urinary urgency Physical exam (Primary Care) Vital Signs: Last Vital Signs Temp 97.3 F 01/09/25 14:13 Pulse 74 01/09/25 14:13 Resp 18 01/09/25 14:13 BP 102/76 01/09/25 14:13 Pulse Ox 94 01/09/25 14:13 Oxygen Delivery Method Room Air 01/09/25 14:13 BMI result Body Mass Index 22.8 Tobacco/Smoking Status: Tobacco use Status Tobacco use date assessed 01/09/25 01/09/25 14:17 Patient Tobacco Use Status Never used Tobacco 01/09/25 14:17 e-Cigarette/Vaping Use Never Used 01/09/25 14:17 PHQ-9: PHQ-9 Score PHQ-9: Total score 0 01/09/25 14:55 Depression Screening Interpretation: Negative Thrive Assessment: Date of Thrive Assessment Date Thrive assessed 01/02/25 01/09/25 14:17 Currently or been in a relationship where the following occur: No concerns reported [facility] Head: Yes normal to inspection, Yes normocephalic and Yes atraumatic Ears: external ears normal Eyes General: appearance normal, both eyes and all related structures Eyelids: Yes eyelids normal Conjunctivae: conjunctivae normal Neck Neck: Yes normal visual inspection and Yes supple Resp Effort & Inspection: normal respiratory effort Auscultation: clear to auscultation bilaterally Cardio Jugular venous distension: no JVD Rate: regular rate Rhythm: regular rhythm Heart sounds: S1 normal heart sound present and S2 normal heart sound present GI Inspection: Yes normal to inspection Palpation (GI): Soft to palpation and nontender Auscultation: normal bowel sounds Skin General skin exam: no rashes or lesions noted Neuro General: no focal motor deficits Extrem General: Yes full ROM Psych Appearance: grossly normal Immunizations Boostrix Tdap 2.5 Lf unit-8 mcg-5 Lf/0.5 mL intramuscular syringe Performing Provider: Roxanne Cordero MD [facility] Administered by: JOSEPH Villasenor on 01/09/25 14:55 Dose Route Admin Location Dispensed Lot Number Expiration Date NDC Barmaid 0.5 mL IM Left Deltoid 0.5 mL [id number] 03/15/27 25580-402-58 [email or web address] Total Dispensed Waste 0.5 mL 0 % VIS Given Date VIS Provided VIS Publication Date 01/09/25 Single Vaccine 20 Eligibility Eligibility Date Funding Source Not [facility] Eligible 01/09/25 Private Coding Level of Care Code Est Pt Prev Care 40-64y(15536) Diagnoses Physical exam Z00.00 Additional Codes JOSE ALEJANDRO-7 Assessment Billing - JOSE ALEJANDRO-7 Assessment Tool: JOSE ALEJANDRO-7 Assessment 35197 ([id number]) PHQ-9 - 03562 - PHQ-9 Billing: Yes ([id number]) Time Spent (min) 32 Assessment & Plan Assessment & Plan (1) Physical exam: Code(s): Z00.00 - Encounter for general adult medical examination without abnormal findings Category: Medical Plan The patient will receive a tetanus vaccine today as it is overdue. She is advised to complete the Cologuard test for colon cancer screening, which is pending. Continued management of endometriosis with current treatments is recommended, as they provide relief. Routine follow-up for breast health is advised, given the family history of breast cancer. Patient was informed and verbally consented to the use of an ambient scribe for clinic note documentation during this visit. Orders: Orders Lipid Panel Today Z00.00 - Encounter for general adult medical examination without abnormal findings Comprehensive [place]. Panel Fast Today Z00.00 - Encounter for general adult medical examination without abnormal findings TDaP Immunization Today Z23 - Encounter for immunization Referrals Cologuard Test Z12.11 - Encounter for screening for malignant neoplasm of colon, Z12.12 - Encounter for screening for malignant neoplasm of rectum Medications: Refilled gabapentin 100 mg PO TID 90 caps 3RF 30 days indomethacin administer with food or milk 50 mg PO BID 60 caps 1RF 30 days
--- OUTSIDE RECORDS SUMMARY | 2025-01-09 14:53 | XMS_ITS | Clinical Summary ---
Author Organization [facility] it Address [address] [place] [address] Care Team Providers Care Meter Repairer Helper Name Role Phone Unavailable Primary Care Provider [...] PM EST Narrative 07/27/2019 9:59 AM EST [facility] [address] [address] Patient: PRETTY ROJAS MR#: [id number] : 1970 Room/Bed: Ordering Physician: SEEMA DIAL () Associated Orders: Mammo Screening Digital Bilat Service Date: 07/07/19 Final #[id number] - MAMMO SCREENING DIGITAL BILAT BILATERAL DIGITAL [...] 1.7% AND LIFETIME RISK IS 17.5%. [facility] RE[facility] THIS PATIENT'S 10-YEAR RISK [...] Procedure Note Aurelia Romero MD - 03/20/2022 [facility] [address] [address] Patient: PRETTY ROJAS MR#:[id number] : 1970Acct#:[id number] Room/Bed: Ordering Physician: SEEMA DIAL () Associated Orders: Mammo Screening Digital Bilat Service Date: 07/07/19 Final #[id number] - MAMMO SCREENING DIGITAL BILAT BILATERAL DIGITAL [...] IS 1.7% AND LIFETIME RISK IS 17.5%. [facility] CALCULATIONS REPORT THIS PATIENT'S 10-YEAR RISK FOR [...]
== END 2025-01-09 14:51 | disposition home or self-care (01) ==
LOC: HO.HMCH 13:56
PROVIDERS: PCP Internal Medicine; Visit Provider Internal Medicine
DX: Z00.00 Encounter for general adult medical examination without abnormal findings (principal); Z23 Encounter for immunization

== ENCOUNTER → 2025-01-09 13:56 | Outpatient (BNVA) | payer BC, SELFPAY | PROVIDERS: PCP Internal Medicine; Visit Provider Internal Medicine | DX: Z00.00 Encounter for general adult medical examination without abnormal findings (principal); I10 Essential (primary) hypertension; Z23 Encounter for immunization | CPT/HCPCS: 90471; 90715; 96127 ==

== ENCOUNTER 2025-01-12 07:36 | Outpatient (REF) | payer BC, SELFPAY ==
[2025-01-12 09:27] LABS: Alanine Aminotransferase 18 U/L (0-31); Albumin Level 4.0 g/dL (3.5-5.0); Alkaline Phosphatase 91 U/L (39-117); Anion Gap 9 (12-20); Aspartate Amino Transferase 24 U/L (5-31); Blood Urea Nitrogen 13 mg/dL (9-16); Calcium 8.8 mg/dL (8.4-10.2); Carbon Dioxide 26 mmol/L (22-29); Chloride 108 mmol/L (96-108); Cholesterol 199 mg/dL (<200); Estimated Glomerular Filt Rate > 60; HDL Cholesterol 73 mg/dL (>40); Potassium 4.3 mmol/L (3.3-5.1); Sodium 139 mmol/L (135-145); Total Protein 6.9 g/dL (6.5-8.0); Triglycerides 79 mg/dL (<150)
== END 2025-01-12 07:37 | disposition home or self-care (01) ==
LOC: HO.LAB 07:36
PROVIDERS: PCP Internal Medicine; Visit Provider Internal Medicine
DX: Z00.00 Encounter for general adult medical examination without abnormal findings (principal); Z13.220 Encounter for screening for lipoid disorders
CPT/HCPCS: 36415; 80053; 80061

== ENCOUNTER 2025-02-28 14:10 | Outpatient (REF) | payer BC, SELFPAY | END 2025-02-28 14:11 | disposition home or self-care (01) | LOC: HO.US 14:10 | PROVIDERS: PCP Internal Medicine; Visit Provider Advanced Practice Midwife | DX: D25.9 Leiomyoma of uterus, unspecified (principal) | CPT/HCPCS: 76830; 76856 ==

== ENCOUNTER → 2025-02-28 14:11 | Outpatient (BNV) | payer BC, SELFPAY | PROVIDERS: PCP Internal Medicine; Visit Provider Radiology Diagnostic Ultrasound | DX: D25.9 Leiomyoma of uterus, unspecified (principal); N83.202 Unspecified ovarian cyst, left side | CPT/HCPCS: 76830; 76856 ==

== ENCOUNTER 2025-03-13 13:54 | Outpatient (AMB) | payer BC, SELFPAY ==
--- NOTE | 2025-03-13 13:59 | A.OFFVIS_ITS ---
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 History of fibroids. She reports her cycles are regular lasting 3 days heavy at times. Denies any pelvic pain. [facility], [facility] Medical History Complex ovarian cyst Uterine fibroid Endometriosis Surgical History History of fracture of clavicle History of ovarian cystectomy Family History Father Hypertension Mother Breast cancer, Onset Age: 62 Maternal Uncle Lung cancer Maternal Grandfather Lung cancer Family/Other Breast cancer Family/Other Breast cancer Family/Other Breast cancer Family/Other Breast cancer Social History Household Members: None Housing: House Alcohol intake: current Alcohol intake frequency: a few times a month Alcohol type: beer, wine and hard liquor Patient Tobacco Use Status: Never used Tobacco e-Cigarette/Vaping Use: Never Used Second Hand Smoke Exposure: No service: No Current occupational status: employed 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 Current occupational exposures/hazards: No Sexual orientation: Straight/Heterosexual Gender identity: Female Cognitive needs: No Hearing needs: No Vision needs: No Female Reproductive History Menstrual Age of Menarche: 13 Review of Systems Const All systems reviewed & are unremarkable except as noted in HPI and below Endo Reports no additional complaints Physical Exam Const General: cooperative, healthy appearing and no acute distress Psych Appearance: well kempt Attitude: cooperative Thought process: Normal thought process present Results Reviewed Results Reviewed: [address] [address] Ultrasound Report Signed Patient: Pretty Bob MR#: [id number] : 1970 Acct:[id number] Age/Sex: 54 / F ADM Date: 02/28/25 Loc: HO. Attending Dr: Malini Devine CNM Ordering Physician: Malini Devine CNM Date of Service: 02/28/25 Procedure(s): US pelvic and transvaginal Accession Number(s): [id number] cc: Malini Devine CNM; Roxanne Phelan MD~ Reason for Exam: D25.9 - Leiomyoma of uterus, unspecified EXAMINATION: US PELVIS CLINICAL INFORMATION: Leiomyoma uterus COMPARISON: Ultrasound 06/14/2023 TECHNIQUE: Ultrasound of the pelvis is performed using both transabdominal and transvaginal transducers along with Doppler. Transvaginal imaging is performed due to inadequate visualization transabdominally. FINDINGS: LMP: One week ago Uterus: The uterus is anteverted and measures 2.5 x 5.5 x 8.4 cm. Homogeneous endometrium measuring 1.1 cm. There are 3 foci with heterogeneous echotexture consistent with fibroids. Myometrial fibroid in the left isthmus. Heterogeneous, mixed hypoechoic and hypoechoic echotexture. Measures 5.9 x 6.6 x 4.5 cm (previous 5.7 x 5 x 5.3 Cm). *Myometrial fibroid in the right body. Measures 2.6 x 2.7 x 2.5 cm. (Previous 2.1 x 2.1 x 2.1 cm.) *Myometrial fibroid in the right body measuring 1.3 x 1.4 x 1.4 cm. Adnexa: Right ovary measures 2.1 x 1.1 x 2.3 cm cm. Volume 2.8 cm. Follicles seen. Left ovary measures 4.8 x 2.9 x 3.1 cm. 2.3 mL volume . 2.9 cm complex cyst, perhaps hemorrhagic follicle. No significant free fluid. US/US pelvic and transvaginal IMPRESSION: * 2 uterine fibroids, slightly increased in size compared to previous. * Additional fibroid in the right body, measuring 1.4 cm, not seen on the prior study., * 2.9 cm left ovarian complex cyst, possible hemorrhagic cyst. Electronically signed by: Bruno Velázquez MD 03/11/2025 03:46 PM EDT Dictated By: Bruno Velázquez MD Signed By: <Electronically signed by Bruno Velázquez MD in OV> 03/11/25 1546 DD/ 1430 TD/TT: 02/28/25 1445 Clinical Data Manager: TALYA Assessment & Plan Assessment & Plan (1) Uterine fibroid: Code(s): D25.9 - Leiomyoma of uterus, unspecified Category: Medical Qualifiers: Uterine leiomyoma location: unspecified location Qualified Code(s): D25.9 - Leiomyoma of uterus, unspecified Plan: Discussed: Ultrasound findings- IMPRESSION: * 2 uterine fibroids, slightly increased in size compared to previous. * Additional fibroid in the right body, measuring 1.4 cm, not seen on the prior study., * 2.9 cm left ovarian complex cyst, possible hemorrhagic cyst. Counseled re: Leiomyoma: common pelvic neoplasm. Differential diagnosis-may include but not limited to- leiomyosarcoma which is a rare uterine sarcoma 3- 7/100,000, difficult to distinguish from fibroids on ultrasound from uterine sarcoma's. Unlikely any single test will have a highly positive predictive value. Hysterectomy is not recommended for sole purpose of excluding malignant neoplasm. Consult for surgical exploration, medical treatment, other treatments, verses expectant management, pros and cons, risks and benefits. Expectant management follow up in 6 months, then yearly for stability. Patient prefers to proceed with expectant management. Referral to MD if indicated for level of care if indicated Report any AUB, pelvic pressure, bloating, or pain. (2) Complex ovarian cyst: Code(s): N83.299 - Other ovarian cyst, unspecified side Category: Medical Plan: Discussed: Ultrasound findings- IMPRESSION: * 2 uterine fibroids, slightly increased in size compared to previous. * Additional fibroid in the right body, measuring 1.4 cm, not seen on the prior study., * 2.9 cm left ovarian complex cyst, possible hemorrhagic cyst. Plan Counseled regarding findings of: Complex ovarian cyst, which is often benign, and most resolve on their own overtime. Some develop into premalignant or malignant tumors. Limitations of testing for diagnostic purposes. Further monitoring and evaluation is recommended with US, possible CT, or MRI study. If persists, or is indicated (Ca-125, Carbohydrate Antigen 19-9, & Carcinoembryonic Antigen) labs will be ordered and referral to [facility] or general gynecology for MD care if indicated for possible surgical consult. Follow up in person for test results. All of her questions and concerns were addressed to the best of my ability and shared decision making. She is agreeable to the plan of care. This note is constructed using voice recognition software. While every effort has been made to ensure accuracy, hogshead wrecker errors may have been included. Orders: Orders US pelvic and transvaginal 04/29/25 N83.299 - Other ovarian cyst, unspecified side Referrals HOSPICE CARE SALES CONSULTANT Referral D25.9 - Leiomyoma of uterus, unspecified Coding Level of Care Code Est Pt Level 3 (52837) Diagnoses Uterine leiomyoma, unspecified location D25.9 Uterine leiomyoma location: unspecified location Complex ovarian cyst N83.299
--- OUTSIDE RECORDS SUMMARY | 2025-03-13 20:02 | XMS_ITS | Clinical Summary ---
Author Organization [facility] Address [address] [place] [address] Care Team Providers Care Cushion Maker Hand Name Role Phone Unavailable Primary Care Provider [...] 11/06/2021 Zoster Vaccines (1 of 2) 11/06/2021 Depression Screening 05/23/2024 COVID-19 Vaccine (1 - 2023-2 5 season) 2025 Influenza Vaccine (#1) 2025 RSV Immunization Adult Patie nts (1 - 1-dose 75+ series) 11/06/2046 HIB Vaccines Aged Out No longer eligi [...] PM EST Narrative 07/27/2019 9:59 AM EST [place] [address] Patient: PRETTY ROJAS MR#: [id number] : 1970 Room/Bed: Ordering Physician: SEEMA DIAL () Associated Orders: Mammo Screening Digital Bilat Service Date: 07/07/19 Final #[id number] - MAMMO SCREENING DIGITAL BILAT BILATERAL DIGITAL [...] 1.7% AND LIFETIME RISK IS 17.5%. [facility] CALCULATIONS REPORT THIS PATIENT'S 10-YEAR [...] breasts may obscure an underlying neoplasm. Aurelia campos/laurarad:07/27/2019 09:59:49 letter sent: Additional Imaging Needed BI-RADS: 0 Incomplete: Needs additional imaging evaluation and/or prior mammograms for comparison Dictating Physician: AURELIA ROMERO MD Dictate Date/Time: 07/07/19 1237 Esigning Physician: AURELIA ROMERO MD Esign Date/Time: 07/27/19 0959 cc: SEEMA DIAL () Procedure Note Aurelia Romero MD - [facility] [address] [place] [address] Patient: PRETTY ROJAS MR#:[id number] : 1970Acct#:[id number] Room/Bed: Ordering Physician: SEEMA DIAL () Associated Orders: Mammo Screening Digital Bilat Service Date: 07/07/19 Final #[id number] - MAMMO SCREENING DIGITAL BILAT BILATERAL DIGITAL [...] IS 1.7% AND LIFETIME RISK IS 17.5%. [facility] CALCULATIONS REPORT THIS PATIENT'S 10-YEAR RISK [...] breasts may obscure an underlying neoplasm. Aurelia ROMERO M.D. aa/marco:07/27/2019 09:59:49 letter sent: Additional Imaging Needed BI-RADS: [...]
== END 2025-03-13 15:03 | disposition home or self-care (01) ==
LOC: HO.HWS 13:56
PROVIDERS: PCP Internal Medicine; Visit Provider Advanced Practice Midwife
DX: D25.9 Leiomyoma of uterus, unspecified (principal); N83.299 Other ovarian cyst, unspecified side
CPT/HCPCS: 99213